=== PATIENT | female | born 1950 | race Caucasian/White ===

== ENCOUNTER 2017-08-11 11:35 | Emergency (ER) | payer MEDICARE, SELFPAY ==
[2017-08-11] VITALS (9 sets, daily range): BP systolic 117–175; BP diastolic 78–112; PULSE 75–99; RESP 12–20; TEMP 36.6; O2SAT 97–100; BMI 17.2
[2017-08-11] MEDS: ONDANSETRON 4 MG/2 ML INJ IV (12:02)
--- NOTE | 2017-08-11 12:09 | PC.NURSE ---
unable to get full hx or allergies on pt due to pt altered LOC. Medics unable to state pts medical HX. Family is on their way. Charting completed the best to my knowledge.
--- NOTE | 2017-08-11 12:21 | PC.NURSE ---
pt sleeping, easily awaken with verbal stimuli, pt repetedly stating i though i was home, pt admits of having diarrhea for 6 days. admits drinking alot. warm blanker provided.
--- NOTE | 2017-08-11 12:27 | DI.RAD.S_ITS ---
PROCEDURE: XR CHEST 1V INDICATIONS: 67 year-old female with altered mental status. TECHNIQUE: One view of the chest was acquired. COMPARISON: [facility], CR, CHEST 2 VIEW, 05/18/2017, 10:57. [facility], CR, XR CHEST 2VW, 11/04/2016, 13:33. [facility], CR, CHEST 2 VIEW, 03/23/2016, 15:18. FINDINGS: Surgical changes and devices: Patient is status post cholecystectomy and bilateral axillary lymph node dissections. Lungs and pleura: No pleural effusions or pneumothorax. Lungs are clear. Mediastinum: Mediastinal contours appear normal. Heart size is normal. Bones and chest wall: No suspicious bony lesions. Overlying soft tissues appear unremarkable. IMPRESSION: No acute cardiopulmonary disease. Dictated by: Baljinder Garcia M.D. on 08/11/2017 at 12:55 Approved by: Baljinder Garcia M.D. on 08/11/2017 at 12:55
--- NOTE | 2017-08-11 12:27 | DI.CT.S_ITS ---
PROCEDURE: CT HEAD/BRAIN WO CON INDICATIONS: 67 year-old female with altered mental status. TECHNIQUE: Noncontrast 4.5 mm thick angled axial sections acquired from the foramen magnum to the vertex, with coronal and sagittal reformats. For radiation dose reduction, the following was used: automated exposure control, adjustment of mA and/or kV according to patient size. COMPARISON: [facility], CT, CT BRAIN WO CON, 12/24/2016, 14:28. FINDINGS: Image quality: Excellent. CSF spaces: Basal cisterns are patent. No extra-axial fluid collections. Ventricles are normal in size and shape. Brain: No midline shift. No intracranial masses or hemorrhage. Asymmetric senescent left basal ganglia calcification is unchanged. Colby-white matter interface is normal. There is mild intracranial internal carotid artery atherosclerosis. Skull and face: Calvarium and visualized facial bones are intact, without suspicious lesions. Sinuses: Visualized sinuses and mastoids are clear. IMPRESSION: No acute intracranial abnormalities. Dictated by: Baljinder Garcia M.D. on 08/11/2017 at 12:52 Approved by: Baljinder Garcia M.D. on 08/11/2017 at 12:54
[2017-08-11 12:50] LABS: Add Manual Diff / Slide Review NO; Basophils Percent Auto 1.1 % (0-2); Eosinophils Percent Auto 0.6 % (2-4); Hematocrit 42.7 % (36-46); Hemoglobin 14.6 g/dL (12.0-16.0); Lymphocytes Percent Auto 59.7 % (25-40); Mean Corpuscular HGB Conc 34.1 % (30-36); Mean Corpuscular Hemoglobin 30.5 PG (26-34); Mean Corpuscular Volume 89.4 fL (80-100); Monocytes Percent Auto 8.3 % (3-14); Neutrophils Absolute Auto 1100 /uL (3000-5900); Neutrophils Percent Auto 30.3 % (50-75); Platelet Count 229 X10^3/uL (150-400); Red Blood Cell Count 4.78 X10^6/uL (4.0-5.2); Red Cell Distribution Width 13.3 % (11.6-14.8); White Blood Cell Count 3.6 X10^3/uL (4.5-11.0)
[2017-08-11 12:54] LABS: Alanine Aminotransferase 37 IU/L (9-52); Albumin 4.7 g/dL (3.5-5.0); Albumin Globulin Ratio 1.5 (1.0-2.8); Alkaline Phosphatase 82 U/L (38-126); Aspartate Aminotransferase 71 IU/L (14-36); BUN Creatinine Ratio 14.3 (6-22); Bilirubin Total 0.9 mg/dL (0.2-1.3); Calcium 8.3 mg/dL (8.4-10.2); Estimated Glomerular Filt Rate > 60.0 mL/min (>60); Globulin 3.1 g/dL (1.7-4.1); Glucose 123 mg/dL (80-110); HEMOLYSIS 44 (0-50); Lipase 371 U/L (23-300); Potassium 4.5 mmol/L (3.4-5.1); Sodium 142 mmol/L (137-145); Total Protein 7.8 g/dL (6.3-8.2)
[2017-08-11 13:06] LABS: Ammonia (NH3) < 9.0 umol/L (9-30); Lactate (Lactic Acid) 1.2 mmol/L (0.7-2.1)
[2017-08-11 13:08] LABS: Procalcitonin < 0.05 ng/mL (<0.5)
[2017-08-11 13:20] LABS: Thyroid Stimulating Hormone 1.02 uIU/mL (0.47-4.68)
[2017-08-11 13:58] LABS: Ethanol (ETOH) 434 mg/dL
[2017-08-11] MEDS: HALOPERIDOL 5 MG/ML VIAL IV (14:12)
[2017-08-11 16:51] LABS: Appearance Urine UA CLEAR; Bilirubin Urine UA NEGATIVE (NEGATIVE); Color Urine UA YELLOW; Glucose Urine UA NEGATIVE (NEGATIVE); Ketones Urine UA NEGATIVE (NEGATIVE); Leukocyte Esterase Urine UA NEGATIVE (NEGATIVE); Nitrite Urine UA NEGATIVE (NEGATIVE); Occult Blood Urine UA TRACE-INTACT (NEGATIVE); Protein Urine UA NEGATIVE (NEGATIVE); Specific Gravity Urine UA <=1.005 (1.000-1.035); Urobilinogen Urine UA 0.2 E.U./dL (0.2); pH Urine UA 6.5 (4.5-8.0)
[2017-08-11 16:58] LABS: Urine Amphetamines Negative (Negative); Urine Barbiturates Negative (Negative); Urine Benzodiazepines Positive (Negative); Urine Cocaine Negative (Negative); Urine MDMA Negative (Negative); Urine Methadone Negative (Negative); Urine Methamphetamines Negative (Negative); Urine Morphine/Opi cutoff 2000 Negative (Negative); Urine Oxycodone Negative (Negative); Urine Phencyclidine Negative (Negative); Urine Tetrahydrocannabinol Negative (Negative); Urine Tricyclic Antidepressant Negative (Negative)
[2017-08-11 16:59] LABS: RBC Urine 0-1/HPF (0-5/HPF); Squamous Epithelial Cell Urine 0-1 /HPF; WBC Urine 0-1/HPF (0-5/HPF)
[2017-08-11 17:00] LABS: Culture Indicated Urine Cult Not Indicated
--- NOTE | 2017-08-11 17:55 | PC.NURSE ---
left message to rafaela hendrix
--- NOTE | 2017-08-11 18:02 | ED_ITS ---
HPI - Altered Mental Status General Chief Complaint: Altered Mental Status Stated Complaint: lethargic/weakness History of Present Illness HPI narrative: HPI 67-year-old female with history of EtOH abuse, DCS, right breast CA, anxiety, and essential hypertension presents for evaluation of confusion without further history of being available. M/S/F/SocHx notable for: please see HPI; remainder reviewed in the chart. ROS: unable to obtain secondary to altered mentation. Exam Gen:, pleasant nontoxic-appearing, resting comfortably, arouses to voice, confused, slurring speech. HEENT: NC, AT, PEERL, EOMI. Resp: Clear to auscultation bilaterally, normal work of breathing, no accessory muscle usage. Card: Regular rate and rhythm with no murmurs, rubs, or gallops, extremities warm and well perfused. GI: Non-tender to palpation throughout all quadrants, no focal tenderness at McBurney's point, negative Cerda's sign, non-distended, no rebound or guarding. : No suprapubic tenderness to palpation. MSK: No visible deformities, strength and tone without visually appreciable deficit. Skin: Normal color with no visible lesions. Neuro: alert and oriented to self but not location, time, date. Moving all extremities without appreciable deficit. Psych: label mood and affect, slurring speech. Labs / Imaging: WBC 3.6, HB 14.6, sodium 142, potassium 4.5, lactic acid 1.2, ammonia less than 9.0, lipase 371, TSH 1.02, pro-calcitonin less than 0.05, EtOH 434 CT head: no acute intracranial abnormality. CXR: no acute cardiopulmonary abnormality. EKG: SR 79 bpm, no ST segment elevations or depressions, no LBBB, QRS 83 ms, QTc 403 ms. MDM Previous chart, nursing note, labs, imaging, and vitals reviewed. A: 67-year-old female with history of EtOH abuse, DCS, right breast CA, anxiety , and essential hypertension presents for evaluation of confusion without further history of being available. DDx & Evaluation: overall clinical toxidrome appears to be congruent with the patient's elevated blood alcohol level. No appreciable trauma on exam or imaging. EKG without evidence of ischemia or conduction abnormalities (ordered to evaluate for possible QT or QRS prolongation secondary to drug ingestion). No hyperammonemia or asterixis. No evidence of infection/sepsis. No evidence of meningitis. TSH WNL. Patient with ongoing confusion, given haloperidol for treatment of encephalopathy. Patient with clearing of intoxication, repeat evaluation with patient alert and oriented, patient care transferred to the overnight provider pending discharge to the patient's son. Patient ambulatory with a steady gait. Impression: confusion, EtOH intoxication (please reference below for remainder of encounter information) Related Data Home Medications Medication Instructions Recorded Confirmed cyclobenzaprine 0 tab PO DIRECTED 08/11/17 08/11/17 hydromorphone [Dilaudid] 2 mg PO Q4HP PRN 08/11/17 08/11/17 lorazepam [Ativan] 2 tab PO Q6H 08/11/17 08/11/17 ondansetron [Zofran ODT] 4 mg SUBLINGUAL Q4HP PRN 08/11/17 08/11/17 tramadol 1 tab PO TID PRN 08/11/17 08/11/17 Previous Rx's Medication Instructions Recorded docusate sodium [Colace] 100 mg PO BID #14 cap 06/04/17 sennosides [Senokot] 8.6 mg PO QDAY #10 tab 06/04/17 lisinopril 20 mg PO QDAY #90 tab 06/07/17 Allergies Allergy/AdvReac Type Severity Reaction Status Date / Time morphine [MORPHINE] Allergy Severe MY BRAIN Verified 08/11/17 14:09 RECEPTORS TO ACKNOWLEDGE IT permethrin [PERMETHRIN] Allergy Severe vomiting, Verified 08/11/17 14:09 diarrhea, all over rash prednisone [PREDNISONE] Allergy Intermediate SICK TO Verified 08/11/17 14:09 STOMACH HARD TIME THINKING acetaminophen [ACETAMINOPHEN] Allergy Mild vomiting Verified 08/11/17 14:09 aspirin [ASPIRIN] Allergy Mild rectal Verified 08/11/17 14:09 bleeding clindamycin [CLINDAMYCIN] Allergy Mild Verified 08/11/17 14:09 codeine [CODEINE] Allergy Mild Verified 08/11/17 14:09 ibuprofen [IBUPROFEN] Allergy Mild vomiting Verified 08/11/17 14:09 MDM - Altered Mental Status Lab Data Result diagrams: 08/11/17 11:55 08/11/17 11:55 Lab Results 08/11/17 08/11/17 08/11/17 Range/Units 11:55 11:55 11:55 WBC 3.6 L (4.5-11.0) X10^3/uL RBC 4.78 (4.0-5.2) X10^6/uL Hgb 14.6 (12.0-16.0) g/dL Hct 42.7 (36-46) % MCV 89.4 (80-100) fL MCH 30.5 (26-34) PG MCHC 34.1 (30-36) % RDW 13.3 (11.6-14.8) % Plt Count 229 (150-400) X10^3/uL Neut % (Auto) 30.3 L (50-75) % Lymph % (Auto) 59.7 H (25-40) % [place] % (Auto) 8.3 (3-14) % Eos % (Auto) 0.6 L (2-4) % Baso % (Auto) 1.1 (0-2) % Neut # (Auto) 1100 L (7914-1548) /uL Sodium 142 (137-145) mmol/L Potassium 4.5 (3.4-5.1) mmol/L Chloride 102.0 (98-107) mmol/L Carbon Dioxide 23.0 (22-32) mmol/L BUN 10.0 (7-17) mg/dL Creatinine 0.70 (0.52-1.04) mg/dL Estimated GFR > 60.0 (>60) mL/min BUN/Creatinine Ratio 14.3 (6-22) Glucose 123 H (80-110) mg/dL Lactate (0.7-2.1) mmol/L Calcium 8.3 L (8.4-10.2) mg/dL Total Bilirubin 0.9 (0.2-1.3) mg/dL AST 71 H (14-36) IU/L ALT 37 (9-52) IU/L Alkaline Phosphatase 82 (38-126) U/L Ammonia (9-30) umol/L Total Protein 7.8 (6.3-8.2) g/dL Albumin 4.7 (3.5-5.0) g/dL Globulin 3.1 (1.7-4.1) g/dL Albumin/Globulin Ratio 1.5 (1.0-2.8) Lipase 371 H (23-300) U/L Procalcitonin < 0.05 (<0.5) ng/mL TSH (0.47-4.68) uIU/mL Urine Color Urine Appearance Urine pH (4.5-8.0) Ur Specific [place] (1.000-1.035) Urine Protein (NEGATIVE) Urine Glucose (UA) (NEGATIVE) g/dL Urine Ketones (NEGATIVE) Urine Occult Blood (NEGATIVE) Urine Nitrate (NEGATIVE) Urine Bilirubin (NEGATIVE) Urine Urobilinogen (0.2) E.U./dL Ur Leukocyte Esterase (NEGATIVE) Urine RBC (0-5/HPF) Urine WBC (0-5/HPF) Ur Squamous Epith Cells Ur Culture Indicated? Micro UA Comment Urine Opiates Screen (Negative) Ur Oxycodone Screen (Negative) Urine Methadone Screen (Negative) Ur Barbiturates Screen (Negative) U Tricyclic Antidepress (Negative) Ur Phencyclidine Scrn (Negative) Ur Amphetamines Screen (Negative) U Methamphetamines Scrn (Negative) Ur MDMA Scrn (Ecstasy) (Negative) U Benzodiazepines Scrn (Negative) Urine Cocaine Screen (Negative) U Marijuana (THC) Screen (Negative) Ethyl Alcohol 434 H* mg/dL 08/11/17 08/11/17 08/11/17 Range/Units 11:55 12:48 12:48 WBC (4.5-11.0) X10^3/uL RBC (4.0-5.2) X10^6/uL Hgb (12.0-16.0) g/dL Hct (36-46) % MCV (80-100) fL MCH (26-34) PG MCHC (30-36) % RDW (11.6-14.8) % Plt Count (150-400) X10^3/uL Neut % (Auto) (50-75) % Lymph % (Auto) (25-40) % [place] % (Auto) (3-14) % Eos % (Auto) (2-4) % Baso % (Auto) (0-2) % Neut # (Auto) (5082-9318) /uL Sodium (137-145) mmol/L Potassium (3.4-5.1) mmol/L Chloride (98-107) mmol/L Carbon Dioxide (22-32) mmol/L BUN (7-17) mg/dL Creatinine (0.52-1.04) mg/dL Estimated GFR (>60) mL/min BUN/Creatinine Ratio (6-22) Glucose (80-110) mg/dL Lactate 1.2 (0.7-2.1) mmol/L Calcium (8.4-10.2) mg/dL Total Bilirubin (0.2-1.3) mg/dL AST (14-36) IU/L ALT (9-52) IU/L Alkaline Phosphatase (38-126) U/L Ammonia < 9.0 L (9-30) umol/L Total Protein (6.3-8.2) g/dL Albumin (3.5-5.0) g/dL Globulin (1.7-4.1) g/dL Albumin/Globulin Ratio (1.0-2.8) Lipase (23-300) U/L Procalcitonin (<0.5) ng/mL TSH 1.02 (0.47-4.68) uIU/mL Urine Color Urine Appearance Urine pH (4.5-8.0) Ur Specific [place] (1.000-1.035) Urine Protein (NEGATIVE) Urine Glucose (UA) (NEGATIVE) g/dL Urine Ketones (NEGATIVE) Urine Occult Blood (NEGATIVE) Urine Nitrate (NEGATIVE) Urine Bilirubin (NEGATIVE) Urine Urobilinogen (0.2) E.U./dL Ur Leukocyte Esterase (NEGATIVE) Urine RBC (0-5/HPF) Urine WBC (0-5/HPF) Ur Squamous Epith Cells Ur Culture Indicated? Micro UA Comment Urine Opiates Screen (Negative) Ur Oxycodone Screen (Negative) Urine Methadone Screen (Negative) Ur Barbiturates Screen (Negative) U Tricyclic Antidepress (Negative) Ur Phencyclidine Scrn (Negative) Ur Amphetamines Screen (Negative) U Methamphetamines Scrn (Negative) Ur MDMA Scrn (Ecstasy) (Negative) U Benzodiazepines Scrn (Negative) Urine Cocaine Screen (Negative) U Marijuana (THC) Screen (Negative) Ethyl Alcohol mg/dL 08/11/17 08/11/17 Range/Units 16:33 16:33 WBC (4.5-11.0) X10^3/uL RBC (4.0-5.2) X10^6/uL Hgb (12.0-16.0) g/dL Hct (36-46) % MCV (80-100) fL MCH (26-34) PG MCHC (30-36) % RDW (11.6-14.8) % Plt Count (150-400) X10^3/uL Neut % (Auto) (50-75) % Lymph % (Auto) (25-40) % [place] % (Auto) (3-14) % Eos % (Auto) (2-4) % Baso % (Auto) (0-2) % Neut # (Auto) (0370-2957) /uL Sodium (137-145) mmol/L Potassium (3.4-5.1) mmol/L Chloride (98-107) mmol/L Carbon Dioxide (22-32) mmol/L BUN (7-17) mg/dL Creatinine (0.52-1.04) mg/dL Estimated GFR (>60) mL/min BUN/Creatinine Ratio (6-22) Glucose (80-110) mg/dL Lactate (0.7-2.1) mmol/L Calcium (8.4-10.2) mg/dL Total Bilirubin (0.2-1.3) mg/dL AST (14-36) IU/L ALT (9-52) IU/L Alkaline Phosphatase (38-126) U/L Ammonia (9-30) umol/L Total Protein (6.3-8.2) g/dL Albumin (3.5-5.0) g/dL Globulin (1.7-4.1) g/dL Albumin/Globulin Ratio (1.0-2.8) Lipase (23-300) U/L Procalcitonin (<0.5) ng/mL TSH (0.47-4.68) uIU/mL Urine Color Yellow Urine Appearance Clear Urine pH 6.5 (4.5-8.0) Ur Specific [place] <=1.005 (1.000-1.035) Urine Protein Negative (NEGATIVE) Urine Glucose (UA) Negative (NEGATIVE) g/dL Urine Ketones Negative (NEGATIVE) Urine Occult Blood Trace-intact H (NEGATIVE) Urine Nitrate Negative (NEGATIVE) Urine Bilirubin Negative (NEGATIVE) Urine Urobilinogen 0.2 (0.2) E.U./dL Ur Leukocyte Esterase Negative (NEGATIVE) Urine RBC 0-1/hpf (0-5/HPF) Urine WBC 0-1/hpf (0-5/HPF) Ur Squamous Epith Cells 0-1 /hpf Ur Culture Indicated? Cult not indicated Micro UA Comment Not Reportable Urine Opiates Screen Negative (Negative) Ur Oxycodone Screen Negative (Negative) Urine Methadone Screen Negative (Negative) Ur Barbiturates Screen Negative (Negative) U Tricyclic Antidepress Negative (Negative) Ur Phencyclidine Scrn Negative (Negative) Ur Amphetamines Screen Negative (Negative) U Methamphetamines Scrn Negative (Negative) Ur MDMA Scrn (Ecstasy) Negative (Negative) U Benzodiazepines Scrn Positive H (Negative) Urine Cocaine Screen Negative (Negative) U Marijuana (THC) Screen Negative (Negative) Ethyl Alcohol mg/dL Course Orders Ordered: ED Orders 08/11/17 11:55 Complete Blood Count AUTO DIFF Stat Comprehensive Metabolic Panel Stat Ethanol (ETOH) Stat Lipase Stat Procalcitonin Stat Thyroid Stimulating Hormone Stat 08/11/17 12:27 CT head/brain wo con Stat XR chest 1V Stat 08/11/17 12:48 Ammonia (NH3) Stat Lactate (Lactic Acid) Stat 08/11/17 12:56 EKG-12 Lead Stat 08/11/17 16:33 Rapid Drug Screen, Urine Stat Urinalysis and Microscopic Stat Discontinued Medications Haloperidol (Haldol) 5 mg IM NOW ONE Stop: 08/11/17 14:03 Last Admin: 08/11/17 15:42 Dose: Haloperidol (Haldol) 5 mg IV NOW ONE Stop: 08/11/17 14:09 Last Admin: 08/11/17 14:12 Dose: 5 mg Ondansetron HCl (Zofran) 4 mg IV NOW ONE Stop: 08/11/17 12:02 Last Admin: 08/11/17 12:02 Dose: 4 mg Last Vital Signs Temp 98 F 08/11/17 11:59 Pulse 86 08/11/17 17:29 Resp 16 08/11/17 17:29 BP 157/100 H 08/11/17 17:29 Pulse Ox 100 08/11/17 17:29 Discharge Plan Departure Prescriptions: No Action docusate sodium [Colace] 100 MG capsule 100 mg PO BID Qty: 14 RF: 1 sennosides [Senokot] 8.6 MG tablet 8.6 mg PO QDAY Qty: 10 RF: 1 lisinopril 20 MG tablet 20 mg PO QDAY Qty: 90 RF: 3 tramadol 50 MG tablet 1 tab PO TID PRN (Reason: Pain, Severe) RF: 0 lorazepam [Ativan] 1 mg tablet 2 tab PO Q6H RF: 0 hydromorphone [Dilaudid] 2 MG tablet 2 mg PO Q4HP PRN (Reason: Pain, Severe) RF: 0 ondansetron [Zofran ODT] 4 MG tablet,disintegrating 4 mg Sublingual Q4HP PRN (Reason: Nausea) RF: 0 cyclobenzaprine 10 MG tablet PO DIRECTED RF: 0
--- NOTE | 2017-08-11 18:59 | PC.NURSE ---
talked to pts son about discharging her home. Pts son concerned because she is not willing to get help, and continues to drink heavily. [facility] since pt has been seen at the ER multiple times for ETOH abuse. Pt brought here covered in feces from home, son states she is unable to care for herself anymore since her ETOH abuse continues to get worse. Joy RN notified. 8 total ER visits between [facility] and [facility] reported on ANA M report.
--- NOTE | 2017-08-11 22:26 | PC.NURSE ---
[facility] evaluated pt and spoke with son Caesar who is willing to care for mom and take her to [facility] followup tomorrow.
== END 2017-08-11 23:10 | disposition home or self-care (01) ==
PROVIDERS: Emergency Provider Emergency Medicine; Family Provider Family Medicine; PCP Family Medicine
DX: R41.0 Disorientation, unspecified (principal); F10.929 Alcohol use, unspecified with intoxication, unspecified
CPT/HCPCS: 36415; 36591; 70450; 71045; 80053; 80305; 80320; 81001; 82140; 83605; 83690; 84145; 84443; 85025; 93005; 96372; 96374; 99285; J1630; J2405

== ENCOUNTER → 2017-08-25 07:13 | Outpatient (CLI) | payer MEDICARE, SELFPAY ==
[2017-08-25 08:54] LABS: Cholesterol 238 mg/dL (140-199); HDL Cholesterol 105 mg/dL (40-60); LDL Cholesterol Calculated 119 mg/dL (<100); Triglycerides 72 mg/dL (35-150)
== END ==
PROVIDERS: PCP Family Medicine; Visit Provider Family Medicine
DX: E78.2 Mixed hyperlipidemia (principal)
CPT/HCPCS: 36415; 80061

== ENCOUNTER 2017-09-13 08:14 | Emergency (ER) | payer MEDICARE, SELFPAY ==
[2017-09-13 08:31] VITALS: BP 172/150; PULSE 87; RESP 18; TEMP 36.6; O2SAT 100
--- NOTE | 2017-09-13 08:56 | DI.RAD.S_ITS ---
PROCEDURE: XR RIBS RT MIN 3V W CXR 1V INDICATIONS: trauma, right posterior rib pain, sob TECHNIQUE: 2 views of the right ribs were acquired, along with a single view chest. COMPARISON: [facility], , XR CHEST 1V, 08/11/2017, 12:13. FINDINGS: Surgical changes and devices: Right axilla surgical clips are present. Multiple radiodensities projects over the lower chest Bones and chest wall: No fractures or dislocations. No suspicious bony lesions. Overlying soft tissues appear unremarkable. Lungs and pleura: No pleural effusions or pneumothorax. Lungs appear clear. Mediastinum: Mediastinal contours appear normal. Heart size is normal. IMPRESSION: 1. No evidence of rib fracture. Bone scan could be performed for further assessment, if clinically indicated. 2. Metallic radiodensities projecting over the lower chest bilaterally, which are of uncertain significance. Dictated by: Jayna Hunter M.D. on 09/13/2017 at 9:22 Approved by: Jayna Hunter M.D. on 09/13/2017 at 9:24
[2017-09-13 09:09] LABS: Add Manual Diff / Slide Review NO; Basophils Percent Auto 0.5 % (0-2); Eosinophils Percent Auto 0.3 % (2-4); Hematocrit 41.2 % (36-46); Hemoglobin 13.7 g/dL (12.0-16.0); Mean Corpuscular HGB Conc 33.2 % (30-36); Mean Corpuscular Hemoglobin 29.5 PG (26-34); Mean Corpuscular Volume 88.9 fL (80-100); Monocytes Percent Auto 7.6 % (3-14); Neutrophils Absolute Auto 4900 /uL (3000-5900); Neutrophils Percent Auto 76.6 % (50-75); Platelet Count 277 X10^3/uL (150-400); Red Blood Cell Count 4.64 X10^6/uL (4.0-5.2); Red Cell Distribution Width 13.1 % (11.6-14.8); White Blood Cell Count 6.4 X10^3/uL (4.5-11.0)
--- NOTE | 2017-09-13 09:21 | ED_ITS ---
HPI - SOB/Dyspnea General Chief Complaint: Shortness of Breath/Dyspnea Stated Complaint: HIT ON RT SIDE BY COW Time Seen by Provider: 09/13/17 08:23 Source: patient Mode of arrival: ambulatory Limitations: no limitations History of Present Illness 67-year-old female with history of chronic back pain presents with shortness of breath and right upper back pain/rib pain that began last night at 5:00 p.m. when she was charged by [place] during feeding time. She states she was bending forward and the animal came to trying get the food and pushed her over. She took her home tramadol up to 3 doses within several hours and did not find any relief from her symptoms. She was hoping the symptoms would resolve by morning but they have persisted. They are associated with shortness of breath. She has a history of alcohol abuse but is currently attending AA and notes she has been sober for some time now. Related Data Home Medications Medication Instructions Recorded Confirmed lorazepam [Ativan] 1 tab PO TID 08/11/17 09/13/17 Previous Rx's Medication Instructions Recorded lisinopril 20 mg PO QDAY #90 tab 06/07/17 tramadol 50 mg tablet 50 mg PO TID PRN #90 tab 09/01/17 hydrocodone-acetaminophen [Goldfield] 1 tab PO Q4H PRN #20 tab 09/13/17 Allergies Allergy/AdvReac Type Severity Reaction Status Date / Time morphine [MORPHINE] Allergy Severe MY BRAIN Verified 08/24/17 09:45 RECEPTORS TO ACKNOWLEDGE IT permethrin [PERMETHRIN] Allergy Severe vomiting, Verified 08/24/17 09:45 diarrhea, all over rash prednisone [PREDNISONE] Allergy Intermediate SICK TO Verified 08/24/17 09:45 STOMACH HARD TIME THINKING acetaminophen [ACETAMINOPHEN] Allergy Mild vomiting Verified 08/24/17 09:45 aspirin [ASPIRIN] Allergy Mild rectal Verified 08/24/17 09:45 bleeding clindamycin [CLINDAMYCIN] Allergy Mild Verified 08/24/17 09:45 codeine [CODEINE] Allergy Mild Verified 08/24/17 09:45 ibuprofen [IBUPROFEN] Allergy Mild vomiting Verified 08/24/17 09:45 Review of Systems Review of Systems All systems reviewed & are unremarkable except as noted in HPI and below Constitutional Denies chills, Denies fever(s), Denies lethargy and Denies weakness Eyes Denies change in vision, Denies eye discharge, Denies irritation and Denies loss of vision ENT Ears, Nose, Mouth, and Throat: Denies change in voice, Denies neck pain and Denies sore throat Cardiovascular Denies chest pain, Denies irregular heart rhythm, Denies lightheadedness, Denies palpitations, Denies dyspnea, Denies dyspnea on exertion and Denies orthopnea Respiratory Denies cough, Denies dyspnea, Denies dyspnea on exertion and Denies wheezing Gastrointestinal Gastrointestinal: Denies abdominal pain, Denies change in bowel habits, Denies diarrhea, Denies nausea and Denies vomiting Genitourinary Denies hematuria, Denies flank pain, Denies urinary incontinence and Denies urinary urgency Musculoskeletal Reports back pain and Denies neck pain Comments: Right upper chest wall pain posteriorly Integumentary/Breasts Denies pruritus, Denies erythema, Denies rash and Denies wounds Neurologic Denies confusion, Denies loss of vision and Denies weakness Psychiatric Denies anxiety, Denies confusion, Denies depression, Denies homicidal ideation and Denies suicidal ideation Endocrine Denies palpitations Hematologic/Lymphatic Denies easy bruising Allergic/Immunologic Denies wheezing PFSH Surgical History History of lumpectomy Status post cholecystectomy Social History Smoking Status: Never smoker Exam Initial Vital Signs Initial Vital Signs: Vital Signs Temperature 97.8 F 09/13/17 08:31 Pulse Rate 87 09/13/17 08:31 Respiratory Rate 18 09/13/17 08:31 Blood Pressure 172/150 H 09/13/17 08:31 Pulse Oximetry 100 09/13/17 08:31 Const General: cooperative and well developed Nutritional Appearance: well nourished Orientation: alert, awake, oriented x3 and not confused [facility] Head: normocephalic and atraumatic Ears: external ears normal and TM's normal bilaterally Nose: external nose normal and No nasal discharge Face and sinus: sinuses nontender, face symmetric, no sinus tenderness and No dry mucous membranes Mouth: oral mucosae normal and moist mucous membranes Teeth and gingiva: dentition normal Throat: tonsils normal and uvula midline Eyes General: appearance normal, both eyes and all related structures Eyelids: eyelids normal Conjunctivae: conjunctivae normal Sclera: sclerae normal Pupils: PERRL EOM: EOM intact bilaterally Neck Neck: normal visual inspection, trachea midline, No lymphadenopathy, No midline deformity and No JVD Lymphatic: No lymphedema Chest Other: Tenderness over the right thoracic paraspinal rib area. There is no crepitus, bruising, or step-offs. Resp Effort & Inspection: normal respiratory effort, able to speak in complete sentences, no respiratory distress and no use of accessory muscles Auscultation: clear to auscultation bilaterally, no rales, no rhonchi and no wheezes Cardio Rate: regular rate Rhythm: regular rhythm Heart Sounds: no click, no gallops, no murmurs and no rubs Pulses: normal peripheral pulses GI Inspection: non-distended Palpation: soft, no hepatosplenomegaly, No guarding, No pulsatile mass and No tender Auscultation: normal bowel sounds Back/Spine/Pelvis Back: No CVA tenderness Cervical Spine: cervical ROM normal and No pain with cervical ROM Thoracic/Lumbar Spine: thoracic and lumbar spine normal to inspection Skin General: no rashes or lesions noted, No jaundice and No petechiae Neuro General: alert, oriented x3, gait normal and no focal motor deficits Speech: speech normal Extrem General: full ROM, no clubbing, cyanosis or edema, no pedal edema and no calf tenderness Psych Appearance: well kempt Mental Status: mental status grossly normal Attitude: cooperative Thought Content: normal and suicidality Judgment: judgment good Course Orders Ordered: Discontinued Medications Hydromorphone HCl (Dilaudid) 0.5 mg IV NOW ONE Stop: 09/13/17 08:57 Last Admin: 09/13/17 09:26 Dose: 0.5 mg Hydromorphone HCl (Dilaudid) 0.5 mg IV NOW ONE Stop: 09/13/17 10:16 Last Admin: 09/13/17 10:27 Dose: 0.5 mg Ondansetron HCl (Zofran) 4 mg IV NOW ONE Stop: 09/13/17 08:57 Last Admin: 09/13/17 09:26 Dose: 4 mg Reevaluation(s) Reevaluation #1: Informed patient of negative x-rays. She is still having pain and requests more medication. Time: 10:16 Consultations Consultation #1: I discussed patient's care with her primary care provider, Dr. Rasmussen, as I was suspecting she may be on pain contract. He notes she is not on pain contract in feels that she can be discharged home with hydrocodone 5/ 325 #20. Vital Signs - 8 hr 09/13/17 11:51 Pulse Rate 74 Respiratory Rate 15 Blood Pressure [Right Arm] 135/88 H Pulse Oximetry 97 MDM - SOB/Dyspnea Medical Records Attestation: I reviewed the patient's medical records. Lab Data Attestation: I reviewed the patient's lab results. Result diagrams: 09/13/17 09:00 09/13/17 09:00 Lab Results 09/13/17 09/13/17 09/13/17 Range/Units 09:00 09:00 09:35 WBC 6.4 (4.5-11.0) X10^3/uL RBC 4.64 (4.0-5.2) X10^6/uL Hgb 13.7 (12.0-16.0) g/dL Hct 41.2 (36-46) % MCV 88.9 (80-100) fL MCH 29.5 (26-34) PG MCHC 33.2 (30-36) % RDW 13.1 (11.6-14.8) % Plt Count 277 (150-400) X10^3/uL Neut % (Auto) 76.6 H (50-75) % Lymph % (Auto) 15.0 L (25-40) % Brantley % (Auto) 7.6 (3-14) % Eos % (Auto) 0.3 L (2-4) % Baso % (Auto) 0.5 (0-2) % Neut # (Auto) 4900 (4460-7665) /uL Sodium 133 L (137-145) mmol/L Potassium 3.5 (3.4-5.1) mmol/L Chloride 98 (98-107) mmol/L Carbon Dioxide 23 (22-32) mmol/L BUN 10 (7-17) mg/dL Creatinine 0.70 (0.52-1.04) mg/dL Estimated GFR > 60.0 (>60) mL/min BUN/Creatinine Ratio 14.3 (6-22) Glucose 96 (80-110) mg/dL Lactate 0.9 (0.7-2.1) mmol/L Calcium 9.3 (8.4-10.2) mg/dL Imaging Data right ribs: Radiologist's impression: PROCEDURE: XR RIBS RT MIN 3V W CXR 1V INDICATIONS: trauma, right posterior rib pain, sob TECHNIQUE: 2 views of the right ribs were acquired, along with a single view chest. COMPARISON: [facility], CR, XR CHEST 1V, 08/11/2017, 12:13. FINDINGS: Surgical changes and devices: Right axilla surgical clips are present. Multiple radiodensities projects over the lower chest Bones and chest wall: No fractures or dislocations. No suspicious bony lesions. Overlying soft tissues appear unremarkable. Lungs and pleura: No pleural effusions or pneumothorax. Lungs appear clear. Mediastinum: Mediastinal contours appear normal. Heart size is normal. IMPRESSION: 1. No evidence of rib fracture. Bone scan could be performed for further assessment, if clinically indicated. 2. Metallic radiodensities projecting over the lower chest bilaterally, which are of uncertain significance. Dictated by: Jayna Hunter M.D. on 09/13/2017 at 9:22 Approved by: Jayna Hunter M.D. on 09/13/2017 at 9:24 MDM Narrative Medical decision making narrative: I consider rib fracture, spinal fracture, pneumothorax, pulmonary contusion, and rib contusion as possible diagnoses/ causes for her pain given her trauma. There is no evidence of rib fracture seen on x-ray nor is there evidence of pneumothorax, pulmonary contusion. She is not tender in the area of the spine and not likely to have spinal fracture. Her pain must be most consistent with rib contusion, however I do not see evidence of bruising or trauma to the ribs which is interesting, however she does appear significantly uncomfortable initially. Symptoms improved with Dilaudid in the ER and she was discharged home with hydrocodone to help with her pain and close follow-up with her primary care provider who I contacted today. Return precautions given. Discharge Plan Departure Patient Disposition: Home, Self-Care Clinical Impression: Acute chest wall pain, Contusion of rib on right side Discharge Date/Time: 09/13/17 12:27 Interventions: ED Discharge Assessment Last Done: 09/13/17 12:27 Instructions: DI for Rib Contusion Activity Restrictions/Additional Instructions: Thank you for trusting as with your care today. No dangerous findings were noted in your evaluation. Please use hydrocodone as needed for pain. Follow up with your primary care provider within 1 week for re-evaluation. Return to the ER for new or worsening symptoms. Prescriptions: New hydrocodone-acetaminophen [Goldfield] 10-325 mg tablet 1 tab PO Q4H PRN (Reason: pain) Qty: 20 RF: 0 No Action lisinopril 20 MG tablet 20 mg PO QDAY Qty: 90 RF: 3 tramadol 50 mg tablet 50 mg PO TID PRN (Reason: Pain, Severe) Qty: 90 RF: 0 lorazepam [Ativan] 1 mg tablet 1 tab PO TID RF: 0
[2017-09-13 09:22] LABS: BUN Creatinine Ratio 14.3 (6-22); Blood Urea Nitrogen 10 mg/dL (7-17); Calcium 9.3 mg/dL (8.4-10.2); Carbon Dioxide 23 mmol/L (22-32); Chloride 98 mmol/L (98-107); Estimated Glomerular Filt Rate > 60.0 mL/min (>60); Glucose 96 mg/dL (80-110); HEMOLYSIS < 15 (0-50); Potassium 3.5 mmol/L (3.4-5.1); Sodium 133 mmol/L (137-145)
[2017-09-13] MEDS: HYDROMORPHONE 0.5 MG INJ IV ×2 (09:26→10:27)
[2017-09-13] MEDS: ONDANSETRON 4 MG/2 ML INJ IV (09:26)
[2017-09-13 09:53] LABS: Lactate (Lactic Acid) 0.9 mmol/L (0.7-2.1)
[2017-09-13 11:51] VITALS: BP 135/88; PULSE 74; RESP 15; O2SAT 97
== END 2017-09-13 12:27 | disposition home or self-care (01) ==
PROVIDERS: Emergency Provider Emergency Medicine; Family Provider Family Medicine; PCP Family Medicine
DX: S20.211A Contusion of right front wall of thorax, initial encounter (principal); W55.22XA Struck by cow, initial encounter
CPT/HCPCS: 36591; 71101; 80048; 81003; 83605; 85025; 96374; 96375; 96376; 99283; 99284; J1170; J2405

== ENCOUNTER 2017-09-16 10:13 | Emergency (ER) | payer MEDICARE, SELFPAY ==
[2017-09-16 10:16] VITALS: BP 133/89; PULSE 86; RESP 20; TEMP 36.7; O2SAT 99
--- NOTE | 2017-09-16 13:13 | ED.UPPEXIN ---
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 The impact threw her onto the ground several feet away. She had pain in her ribs, but no other injuries such as head contusion or LOC at the time. She states this was very painful so came in here to the ED, had x-rays and no fractures. She states that pain medication she got here in the ED, Dilaudid, was helpful and she was able to sleep that night. She tried [place] the next day and this did nothing for her, so she threw it out. She talked with her PCP regarding pain medication and follow-up, but apparently no appointments available. She also began having abdominal pain in the last day and was told to come here for a CT. She states the pain is focused on both sides of her upper abdomen, under the rib area, however she feels like the rib injuries are actually improved. She denies dyspnea or wheeze. She denies any hematuria or vomiting blood or other new c.o. Pain is worse with movement and stretching the area, better sitting with back flexed. Related Data Home Medications Medication Instructions Recorded Confirmed lorazepam [Ativan] 1 tab PO TID 08/11/17 09/16/17 hydrocodone-acetaminophen 1 tab PO Q4H PRN 09/16/17 09/16/17 Previous Rx's Medication Instructions Recorded lisinopril 20 mg PO QDAY #90 tab 06/07/17 tramadol 50 mg tablet 50 mg PO TID PRN #90 tab 09/01/17 tramadol 50 mg PO Q4-6H PRN #10 tab 09/16/17 Allergies Allergy/AdvReac Type Severity Reaction Status Date / Time morphine [MORPHINE] Allergy Severe MY BRAIN Verified 08/24/17 09:45 RECEPTORS TO ACKNOWLEDGE IT permethrin [PERMETHRIN] Allergy Severe vomiting, Verified 08/24/17 09:45 diarrhea, all over rash prednisone [PREDNISONE] Allergy Intermediate SICK TO Verified 08/24/17 09:45 STOMACH HARD TIME THINKING acetaminophen [ACETAMINOPHEN] Allergy Mild vomiting Verified 08/24/17 09:45 aspirin [ASPIRIN] Allergy Mild rectal Verified 08/24/17 09:45 bleeding clindamycin [CLINDAMYCIN] Allergy Mild Verified 08/24/17 09:45 codeine [CODEINE] Allergy Mild Verified 08/24/17 09:45 ibuprofen [IBUPROFEN] Allergy Mild vomiting Verified 08/24/17 09:45 Review of Systems <Laura Vega PA-C - Last Filed: 09/16/17 20:28> Review of Systems All systems reviewed & are unremarkable except as noted in HPI and below Exam <SOWMYA Hinojosa Last Filed: 09/16/17 20:28> Narrative Exam Narrative: GENERAL APPEARANCE: Patient sitting comfortably, in no distress. HEENT: PERRL, EOMI, no scleral icterus NECK: Supple LUNGS: Clear to auscultation bilaterally. HEART: Rate and rhythm regular, normal S1 and S2, no S3 or S4. ABDOMEN: Soft, nondistended, bowel sounds present x 4 quadrants, no masses palpable, no hepatosplenomegaly. She is exquisitely tender mainly inferior to the ribs around both anterior costal margins without guarding or rebound. Very minimal tenderness over the inferior quadrants which is difficult to reproduce. No CVAT EXTREMITIES: No edema, no cyanosis DERMATOLOGIC: No jaundice or exanthem NEUROLOGIC: Alert and oriented with normal speech and coordination Initial Vital Signs Initial Vital Signs: Vital Signs Temperature 98.0 F 09/16/17 10:16 Pulse Rate 86 09/16/17 10:16 Respiratory Rate 20 09/16/17 10:16 Blood Pressure 133/89 H 09/16/17 10:16 Pulse Oximetry 99 09/16/17 10:16 <Joana Maldonado DO - Last Filed: 09/17/17 08:50> Initial Vital Signs Initial Vital Signs: Vital Signs Temperature 98.0 F 09/16/17 10:16 Pulse Rate 86 09/16/17 10:16 Respiratory Rate 20 09/16/17 10:16 Blood Pressure 133/89 H 09/16/17 10:16 Pulse Oximetry 99 09/16/17 10:16 Course <SOWMYA Hinojosa Last Filed: 09/16/17 20:28> Hospital Course: Patient reported feeling much improved during her stay. We reviewed CT findings. There was some question of bile duct dilatation though this could be due to her postop status. There does not appear to be any urgent need for surgical consultation or admission. I spoke with Dr. Rasmussen is office and they are arranging some other workup for her and will call to arrange follow-up. Also advised that I will prescribe a small amount of tramadol as [place] was not effective, but patient may need pain medications refilled through them and she was agreeable with plan Orders Ordered: Discontinued Medications Hydromorphone HCl (Dilaudid) 1 mg IV Q4H PRN PRN Reason: Pain, Severe Last Admin: 09/16/17 13:57 Dose: 1 mg Sodium Chloride (Normal Saline 0.9%) 1,000 mls @ 1,000 mls/hr IV BOLUS ONE Stop: 09/16/17 14:28 Last Infusion: 09/16/17 14:45 Dose: 0 mls/hr Admin: 09/16/17 13:57 Dose: 1,000 mls/hr Tramadol HCl (Ultram) 100 mg PO NOW ONE Stop: 09/16/17 13:30 Last Admin: 09/16/17 14:29 Dose: Not Given Vital Signs - 8 hr 09/16/17 15:23 Pulse Rate 74 Respiratory Rate 16 Blood Pressure [Left Arm] 158/102 H Pulse Oximetry 99 <Joana Maldonado, DO - Last Filed: 09/17/17 08:50> Orders Ordered: Discontinued Medications Hydromorphone HCl (Dilaudid) 1 mg IV Q4H PRN PRN Reason: Pain, Severe Last Admin: 09/16/17 13:57 Dose: 1 mg Sodium Chloride (Normal Saline 0.9%) 1,000 mls @ 1,000 mls/hr IV BOLUS ONE Stop: 09/16/17 14:28 Last Infusion: 09/16/17 14:45 Dose: 0 mls/hr Admin: 09/16/17 13:57 Dose: 1,000 mls/hr Tramadol HCl (Ultram) 100 mg PO NOW ONE Stop: 09/16/17 13:30 Last Admin: 09/16/17 14:29 Dose: Not Given Vital Signs - 8 hr 09/16/17 15:23 Pulse Rate 74 Respiratory Rate 16 Blood Pressure [Left Arm] 158/102 H Pulse Oximetry 99 MDM - Extremity Injury (Upper) <Laura Vega PA-C - Last Filed: 09/16/17 20:28> Lab Data Result diagrams: 09/16/17 13:50 09/16/17 13:50 Lab Results 09/16/17 09/16/17 09/16/17 Range/Units 13:40 13:50 13:50 WBC 6.3 (4.5-11.0) X10^3/uL RBC 4.41 (4.0-5.2) X10^6/uL Hgb 13.2 (12.0-16.0) g/dL Hct 39.3 (36-46) % MCV 89.1 (80-100) fL MCH 29.9 (26-34) PG MCHC 33.6 (30-36) % RDW 13.1 (11.6-14.8) % Plt Count 338 (150-400) X10^3/uL Neut % (Auto) 67.9 (50-75) % Lymph % (Auto) 21.5 L (25-40) % [place] % (Auto) 7.8 (3-14) % Eos % (Auto) 2.1 (2-4) % Baso % (Auto) 0.7 (0-2) % Neut # (Auto) 4300 (1656-9799) /uL Sodium 134 L (137-145) mmol/L Potassium 3.9 (3.4-5.1) mmol/L Chloride 95 L (98-107) mmol/L Carbon Dioxide 27 (22-32) mmol/L BUN 8 (7-17) mg/dL Creatinine 0.70 (0.52-1.04) mg/dL Estimated GFR > 60.0 (>60) mL/min BUN/Creatinine Ratio 11.4 (6-22) Glucose 102 (80-110) mg/dL Calcium 9.5 (8.4-10.2) mg/dL Urine Color Cancelled Urine Appearance Cancelled Urine pH Cancelled Ur Specific [place] Cancelled Urine Protein Cancelled Urine Glucose (UA) Cancelled Urine Ketones Cancelled Urine Occult Blood Cancelled Urine Nitrate Cancelled Urine Bilirubin Cancelled Urine Urobilinogen Cancelled Ur Leukocyte Esterase Cancelled Urine RBC 0-1/hpf (0-5/HPF) Urine WBC 5-10/hpf H (0-5/HPF) Ur Squamous Epith Cells 0-1 /hpf Urine Bacteria Moderate (10-30) H (None) Ur Culture Indicated? Specimen cultured Micro UA Comment Not Reportable Imaging Data CT scan - abdomen: Radiologist's impression: [address] [address] [address] Scan Report Signed Patient: Claudia Manzo MR#: [id number] : 1950 Acct:[id number] Age/Sex: 67 / F Date of Service: 09/16/17 Loc: ED Accession Number: [id number] Procedure: CT chest abd pel w con Ordering Provider: Laura Vega P.A-C PROCEDURE: CT CHEST ABD PEL W CON INDICATIONS: contusions, splenic, liver pain, KICK TO BACK AREA TUESDAY TECHNIQUE: After the administration of intravenous contrast, 5 mm thick sections acquired from the lung apices to the symphysis. 2.5 mm thick coronal and sagittal reformats were acquired. Additional 7 mm thick coronal maximum intensity projection (MIP) reformats acquired through the lungs. Optional 10-minute delayed imaging may be performed from the kidneys to the bladder. For radiation dose reduction, the following was used: automated exposure control, adjustment of mA and/or kV according to patient size. COMPARISON: [facility], CT, ABDOMEN/PELVIS WITH CONTRAST, 04/01/2017, 8:00. FINDINGS: Image quality: Excellent. CHEST: Lungs: No pulmonary contusions or lacerations. No acute airspace opacities. No pneumothorax or hemothorax. Central and peripheral airways appear patent and normal in caliber. Mediastinum: No mediastinal hematomas. Heart size is normal. No pericardial effusion. Thoracic aorta and pulmonary arteries demonstrate normal size and enhancement. No mediastinal or hilar adenopathy. Esophagus is normal in caliber. No hiatal hernia. Chest wall: No rib fractures. No subcutaneous emphysema. No axillary or supraclavicular adenopathy. Thyroid gland is unremarkable. ABDOMEN: Solid organs: Liver is normal in size and enhancement, without lacerations. Gallbladder is within normal limits. There is mild prominence of the extrahepatic biliary duct measuring approximately 14 mm. This is increased in size compared to 5 mm on prior exam of 04/01/17. There is no visualized source of obstruction.. Biliary system is non-dilated. Pancreas enhances normally, without transection. Spleen is normal in size and enhancement, without lacerations. No adrenal hematomas. Both kidneys enhance normally, without hydronephrosis or lacerations. Peritoneum and bowel: No free fluid or air. Unenhanced bowel loops demonstrate normal wall thickness and caliber. Nodes and vessels: No retroperitoneal or mesenteric adenopathy. Aorta and inferior vena cava are normal in size and enhancement. Miscellaneous: No ventral hernias. PELVIS: Genitourinary: Bladder wall thickness is normal. Prominent vascularity is present within the lower pelvis surrounding the uterus. Miscellaneous: No inguinal hernias or adenopathy. Bones: Pelvic ring and hip joints appear intact. No vertebral compression fractures. IMPRESSION: 1. No acute osseous or visceral injury. 2. Status post cholecystectomy. There is increased prominence of the common bile duct as detailed above. While this could be related to continued post cholecystectomy sequela, other etiologies cannot be excluded although no definitive source of obstruction is identified. Recommend correlation to laboratory values as appropriate. 3. Increased vascularity surrounding the uterus. This could be related to pelvic congestion syndrome. Overall appearance is unchanged and clinical correlation is recommended. Dictated by: Blanca Tracey M.D. on 09/16/2017 at 14:24 Approved by: Blanca Tracey M.D. on 09/16/2017 at 14:52 <Joana Maldonado DO - Last Filed: 09/17/17 08:50> Lab Data Lab Results 09/16/17 09/16/17 09/16/17 Range/Units 13:40 13:50 13:50 WBC 6.3 (4.5-11.0) X10^3/uL RBC 4.41 (4.0-5.2) X10^6/uL Hgb 13.2 (12.0-16.0) g/dL Hct 39.3 (36-46) % MCV 89.1 (80-100) fL MCH 29.9 (26-34) PG MCHC 33.6 (30-36) % RDW 13.1 (11.6-14.8) % Plt Count 338 (150-400) X10^3/uL Neut % (Auto) 67.9 (50-75) % Lymph % (Auto) 21.5 L (25-40) % [place] % (Auto) 7.8 (3-14) % Eos % (Auto) 2.1 (2-4) % Baso % (Auto) 0.7 (0-2) % Neut # (Auto) 4300 (1516-4890) /uL Sodium 134 L (137-145) mmol/L Potassium 3.9 (3.4-5.1) mmol/L Chloride 95 L (98-107) mmol/L Carbon Dioxide 27 (22-32) mmol/L BUN 8 (7-17) mg/dL Creatinine 0.70 (0.52-1.04) mg/dL Estimated GFR > 60.0 (>60) mL/min BUN/Creatinine Ratio 11.4 (6-22) Glucose 102 (80-110) mg/dL Calcium 9.5 (8.4-10.2) mg/dL Urine Color Cancelled Urine Appearance Cancelled Urine pH Cancelled Ur Specific [place] Cancelled Urine Protein Cancelled Urine Glucose (UA) Cancelled Urine Ketones Cancelled Urine Occult Blood Cancelled Urine Nitrate Cancelled Urine Bilirubin Cancelled Urine Urobilinogen Cancelled Ur Leukocyte Esterase Cancelled Urine RBC 0-1/hpf (0-5/HPF) Urine WBC 5-10/hpf H (0-5/HPF) Ur Squamous Epith Cells 0-1 /hpf Urine Bacteria Moderate (10-30) H (None) Ur Culture Indicated? Specimen cultured Micro UA Comment Not Reportable Discharge Plan Departure Patient Disposition: Home, Self-Care Clinical Impression: Abdominal wall contusion Discharge Date/Time: 09/16/17 15:49 Interventions: ED Discharge Assessment Last Done: 09/16/17 15:48 Instructions: DI for Abdominal Muscle Strain Activity Restrictions/Additional Instructions: I have given you instructions for abdominal muscle strain, as this has some similar properties to the abdominal wall contusion that you have. From the CT scan today and your lab work, does not appear that there are internal organ injuries. Since you are feeling better, it is okay to monitor at home this weekend. Avoid activities that put strain on the abdomen. You can take the tramadol as needed, and you should see your PCP for follow-up to determine whether further treatment and more pain medication is needed. I spoke with his nurse Suzanne and she will call you to coordinate follow up as he wants you to have some additional testing. They will refill pain medicines if you need Prescriptions: New tramadol 50 mg tablet 50 mg PO Q4-6H PRN (Reason: pain) Qty: 10 RF: 0 No Action lisinopril 20 MG tablet 20 mg PO QDAY Qty: 90 RF: 3 tramadol 50 mg tablet 50 mg PO TID PRN (Reason: Pain, Severe) Qty: 90 RF: 0 lorazepam [Ativan] 1 mg tablet 1 tab PO TID RF: 0 hydrocodone-acetaminophen 10-325 mg tablet 1 tab PO Q4H PRN (Reason: Pain, Moderate) RF: 0 Referrals: Lei Rasmussen MD [Primary Care Provider] - <Joana Maldonado DO - Last Filed: 09/17/17 08:50> Cosign ED Attending Traciature Attestation: I was immediately available in the department for consultation. Documentation has been reviewed. I agree with assessment and plan.
--- NOTE | 2017-09-16 13:26 | PC.NURSE ---
Seen Tuesday for same. Provider at bedside
--- NOTE | 2017-09-16 13:45 | ED_ITS ---
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 The impact threw her onto the ground several feet away. She had pain in her ribs, but no other injuries such as head contusion or LOC at the time. She states this was very painful so came in here to the ED, had x-rays and no fractures. She states that pain medication she got here in the ED, Dilaudid, was helpful and she was able to sleep that night. She tried Vinton the next day and this did nothing for her, so she threw it out. She talked with her PCP regarding pain medication and follow-up, but apparently no appointments available. She also began having abdominal pain in the last day and was told to come here for a CT. She states the pain is focused on both sides of her upper abdomen, under the rib area, however she feels like the rib injuries are actually improved. She denies dyspnea or wheeze. She denies any hematuria or vomiting blood or other new c.o. Pain is worse with movement and stretching the area, better sitting with back flexed. Related Data Home Medications Medication Instructions Recorded Confirmed lorazepam [Ativan] 1 tab PO TID 08/11/17 09/16/17 hydrocodone-acetaminophen 1 tab PO Q4H PRN 09/16/17 09/16/17 Previous Rx's Medication Instructions Recorded lisinopril 20 mg PO QDAY #90 tab 06/07/17 tramadol 50 mg tablet 50 mg PO TID PRN #90 tab 09/01/17 tramadol 50 mg PO Q4-6H PRN #10 tab 09/16/17 Allergies Allergy/AdvReac Type Severity Reaction Status Date / Time morphine [MORPHINE] Allergy Severe MY BRAIN Verified 08/24/17 09:45 RECEPTORS TO ACKNOWLEDGE IT permethrin [PERMETHRIN] Allergy Severe vomiting, Verified 08/24/17 09:45 diarrhea, all over rash prednisone [PREDNISONE] Allergy Intermediate SICK TO Verified 08/24/17 09:45 STOMACH HARD TIME THINKING acetaminophen [ACETAMINOPHEN] Allergy Mild vomiting Verified 08/24/17 09:45 aspirin [ASPIRIN] Allergy Mild rectal Verified 08/24/17 09:45 bleeding clindamycin [CLINDAMYCIN] Allergy Mild Verified 08/24/17 09:45 codeine [CODEINE] Allergy Mild Verified 08/24/17 09:45 ibuprofen [IBUPROFEN] Allergy Mild vomiting Verified 08/24/17 09:45 Review of Systems <Laura Vega PA-C - Last Filed: 09/16/17 20:28> Review of Systems All systems reviewed & are unremarkable except as noted in HPI and below Exam <SOWMYA Hinojosa Last Filed: 09/16/17 20:28> Narrative Exam Narrative: GENERAL APPEARANCE: Patient sitting comfortably, in no distress. HEENT: PERRL, EOMI, no scleral icterus NECK: Supple LUNGS: Clear to auscultation bilaterally. HEART: Rate and rhythm regular, normal S1 and S2, no S3 or S4. ABDOMEN: Soft, nondistended, bowel sounds present x 4 quadrants, no masses palpable, no hepatosplenomegaly. She is exquisitely tender mainly inferior to the ribs around both anterior costal margins without guarding or rebound. Very minimal tenderness over the inferior quadrants which is difficult to reproduce. No CVAT EXTREMITIES: No edema, no cyanosis DERMATOLOGIC: No jaundice or exanthem NEUROLOGIC: Alert and oriented with normal speech and coordination Initial Vital Signs Initial Vital Signs: Vital Signs Temperature 98.0 F 09/16/17 10:16 Pulse Rate 86 09/16/17 10:16 Respiratory Rate 20 09/16/17 10:16 Blood Pressure 133/89 H 09/16/17 10:16 Pulse Oximetry 99 09/16/17 10:16 <Joaan Maldonado DO - Last Filed: 09/17/17 08:50> Initial Vital Signs Initial Vital Signs: Vital Signs Temperature 98.0 F 09/16/17 10:16 Pulse Rate 86 09/16/17 10:16 Respiratory Rate 20 09/16/17 10:16 Blood Pressure 133/89 H 09/16/17 10:16 Pulse Oximetry 99 09/16/17 10:16 Course <SOWMYA Hinojosa Last Filed: 09/16/17 20:28> Hospital Course: Patient reported feeling much improved during her stay. We reviewed CT findings. There was some question of bile duct dilatation though this could be due to her postop status. There does not appear to be any urgent need for surgical consultation or admission. I spoke with Dr. Rasmussen is office and they are arranging some other workup for her and will call to arrange follow-up. Also advised that I will prescribe a small amount of tramadol as Vinton was not effective, but patient may need pain medications refilled through them and she was agreeable with plan Orders Ordered: Discontinued Medications Hydromorphone HCl (Dilaudid) 1 mg IV Q4H PRN PRN Reason: Pain, Severe Last Admin: 09/16/17 13:57 Dose: 1 mg Sodium Chloride (Normal Saline 0.9%) 1,000 mls @ 1,000 mls/hr IV BOLUS ONE Stop: 09/16/17 14:28 Last Infusion: 09/16/17 14:45 Dose: 0 mls/hr Admin: 09/16/17 13:57 Dose: 1,000 mls/hr Tramadol HCl (Ultram) 100 mg PO NOW ONE Stop: 09/16/17 13:30 Last Admin: 09/16/17 14:29 Dose: Not Given Vital Signs - 8 hr 09/16/17 15:23 Pulse Rate 74 Respiratory Rate 16 Blood Pressure [Left Arm] 158/102 H Pulse Oximetry 99 <Joana Maldonado, DO - Last Filed: 09/17/17 08:50> Orders Ordered: Discontinued Medications Hydromorphone HCl (Dilaudid) 1 mg IV Q4H PRN PRN Reason: Pain, Severe Last Admin: 09/16/17 13:57 Dose: 1 mg Sodium Chloride (Normal Saline 0.9%) 1,000 mls @ 1,000 mls/hr IV BOLUS ONE Stop: 09/16/17 14:28 Last Infusion: 09/16/17 14:45 Dose: 0 mls/hr Admin: 09/16/17 13:57 Dose: 1,000 mls/hr Tramadol HCl (Ultram) 100 mg PO NOW ONE Stop: 09/16/17 13:30 Last Admin: 09/16/17 14:29 Dose: Not Given Vital Signs - 8 hr 09/16/17 15:23 Pulse Rate 74 Respiratory Rate 16 Blood Pressure [Left Arm] 158/102 H Pulse Oximetry 99 MDM - Extremity Injury (Upper) <Laura Vega PA-C - Last Filed: 09/16/17 20:28> Lab Data Result diagrams: 09/16/17 13:50 09/16/17 13:50 Lab Results 09/16/17 09/16/17 09/16/17 Range/Units 13:40 13:50 13:50 WBC 6.3 (4.5-11.0) X10^3/uL RBC 4.41 (4.0-5.2) X10^6/uL Hgb 13.2 (12.0-16.0) g/dL Hct 39.3 (36-46) % MCV 89.1 (80-100) fL MCH 29.9 (26-34) PG MCHC 33.6 (30-36) % RDW 13.1 (11.6-14.8) % Plt Count 338 (150-400) X10^3/uL Neut % (Auto) 67.9 (50-75) % Lymph % (Auto) 21.5 L (25-40) % [place] % (Auto) 7.8 (3-14) % Eos % (Auto) 2.1 (2-4) % Baso % (Auto) 0.7 (0-2) % Neut # (Auto) 4300 (5679-2872) /uL Sodium 134 L (137-145) mmol/L Potassium 3.9 (3.4-5.1) mmol/L Chloride 95 L (98-107) mmol/L Carbon Dioxide 27 (22-32) mmol/L BUN 8 (7-17) mg/dL Creatinine 0.70 (0.52-1.04) mg/dL Estimated GFR > 60.0 (>60) mL/min BUN/Creatinine Ratio 11.4 (6-22) Glucose 102 (80-110) mg/dL Calcium 9.5 (8.4-10.2) mg/dL Urine Color Cancelled Urine Appearance Cancelled Urine pH Cancelled Ur Specific [place] Cancelled Urine Protein Cancelled Urine Glucose (UA) Cancelled Urine Ketones Cancelled Urine Occult Blood Cancelled Urine Nitrate Cancelled Urine Bilirubin Cancelled Urine Urobilinogen Cancelled Ur Leukocyte Esterase Cancelled Urine RBC 0-1/hpf (0-5/HPF) Urine WBC 5-10/hpf H (0-5/HPF) Ur Squamous Epith Cells 0-1 /hpf Urine Bacteria Moderate (10-30) H (None) Ur Culture Indicated? Specimen cultured Micro UA Comment Not Reportable Imaging Data CT scan - abdomen: Radiologist's impression: [address] [address] [address] Scan Report Signed Patient: Claudia Manzo MR#: [id number] : 1950 Acct:[id number] Age/Sex: 67 / F Date of Service: 09/16/17 Loc: ED Accession Number: [id number] Procedure: CT chest abd pel w con Ordering Provider: Laura Vega P.A-C PROCEDURE: CT CHEST ABD PEL W CON INDICATIONS: contusions, splenic, liver pain, KICK TO BACK AREA TUESDAY TECHNIQUE: After the administration of intravenous contrast, 5 mm thick sections acquired from the lung apices to the symphysis. 2.5 mm thick coronal and sagittal reformats were acquired. Additional 7 mm thick coronal maximum intensity projection (MIP) reformats acquired through the lungs. Optional 10-minute delayed imaging may be performed from the kidneys to the bladder. For radiation dose reduction, the following was used: automated exposure control, adjustment of mA and/or kV according to patient size. COMPARISON: [facility], CT, ABDOMEN/PELVIS WITH CONTRAST, 04/01/2017, 8: 00. FINDINGS: Image quality: Excellent. CHEST: Lungs: No pulmonary contusions or lacerations. No acute airspace opacities. No pneumothorax or hemothorax. Central and peripheral airways appear patent and normal in caliber. Mediastinum: No mediastinal hematomas. Heart size is normal. No pericardial effusion. Thoracic aorta and pulmonary arteries demonstrate normal size and enhancement. No mediastinal or hilar adenopathy. Esophagus is normal in caliber. No hiatal hernia. Chest wall: No rib fractures. No subcutaneous emphysema. No axillary or supraclavicular adenopathy. Thyroid gland is unremarkable. ABDOMEN: Solid organs: Liver is normal in size and enhancement, without lacerations. Gallbladder is within normal limits. There is mild prominence of the extrahepatic biliary duct measuring approximately 14 mm. This is increased in size compared to 5 mm on prior exam of 04/01/17. There is no visualized source of obstruction.. Biliary system is non-dilated. Pancreas enhances normally, without transection. Spleen is normal in size and enhancement, without lacerations. No adrenal hematomas. Both kidneys enhance normally, without hydronephrosis or lacerations. Peritoneum and bowel: No free fluid or air. Unenhanced bowel loops demonstrate normal wall thickness and caliber. Nodes and vessels: No retroperitoneal or mesenteric adenopathy. Aorta and inferior vena cava are normal in size and enhancement. Miscellaneous: No ventral hernias. PELVIS: Genitourinary: Bladder wall thickness is normal. Prominent vascularity is present within the lower pelvis surrounding the uterus. Miscellaneous: No inguinal hernias or adenopathy. Bones: Pelvic ring and hip joints appear intact. No vertebral compression fractures. IMPRESSION: 1. No acute osseous or visceral injury. 2. Status post cholecystectomy. There is increased prominence of the common bile duct as detailed above. While this could be related to continued post cholecystectomy sequela, other etiologies cannot be excluded although no definitive source of obstruction is identified. Recommend correlation to laboratory values as appropriate. 3. Increased vascularity surrounding the uterus. This could be related to pelvic congestion syndrome. Overall appearance is unchanged and clinical correlation is recommended. Dictated by: Blanca Tracey M.D. on 09/16/2017 at 14:24 Approved by: Blanca Tracey M.D. on 09/16/2017 at 14:52 <Joana Maldonado DO - Last Filed: 09/17/17 08:50> Lab Data Lab Results 09/16/17 09/16/17 09/16/17 Range/Units 13:40 13:50 13:50 WBC 6.3 (4.5-11.0) X10^3/uL RBC 4.41 (4.0-5.2) X10^6/uL Hgb 13.2 (12.0-16.0) g/dL Hct 39.3 (36-46) % MCV 89.1 (80-100) fL MCH 29.9 (26-34) PG MCHC 33.6 (30-36) % RDW 13.1 (11.6-14.8) % Plt Count 338 (150-400) X10^3/uL Neut % (Auto) 67.9 (50-75) % Lymph % (Auto) 21.5 L (25-40) % [place] % (Auto) 7.8 (3-14) % Eos % (Auto) 2.1 (2-4) % Baso % (Auto) 0.7 (0-2) % Neut # (Auto) 4300 (6403-6090) /uL Sodium 134 L (137-145) mmol/L Potassium 3.9 (3.4-5.1) mmol/L Chloride 95 L (98-107) mmol/L Carbon Dioxide 27 (22-32) mmol/L BUN 8 (7-17) mg/dL Creatinine 0.70 (0.52-1.04) mg/dL Estimated GFR > 60.0 (>60) mL/min BUN/Creatinine Ratio 11.4 (6-22) Glucose 102 (80-110) mg/dL Calcium 9.5 (8.4-10.2) mg/dL Urine Color Cancelled Urine Appearance Cancelled Urine pH Cancelled Ur Specific [place] Cancelled Urine Protein Cancelled Urine Glucose (UA) Cancelled Urine Ketones Cancelled Urine Occult Blood Cancelled Urine Nitrate Cancelled Urine Bilirubin Cancelled Urine Urobilinogen Cancelled Ur Leukocyte Esterase Cancelled Urine RBC 0-1/hpf (0-5/HPF) Urine WBC 5-10/hpf H (0-5/HPF) Ur Squamous Epith Cells 0-1 /hpf Urine Bacteria Moderate (10-30) H (None) Ur Culture Indicated? Specimen cultured Micro UA Comment Not Reportable Discharge Plan Departure Patient Disposition: Home, Self-Care Clinical Impression: Abdominal wall contusion Discharge Date/Time: 09/16/17 15:49 Interventions: ED Discharge Assessment Last Done: 09/16/17 15:48 Instructions: DI for Abdominal Muscle Strain Activity Restrictions/Additional Instructions: I have given you instructions for abdominal muscle strain, as this has some similar properties to the abdominal wall contusion that you have. From the CT scan today and your lab work, does not appear that there are internal organ injuries. Since you are feeling better, it is okay to monitor at home this weekend. Avoid activities that put strain on the abdomen. You can take the tramadol as needed, and you should see your PCP for follow-up to determine whether further treatment and more pain medication is needed. I spoke with his nurse Suzanne and she will call you to coordinate follow up as he wants you to have some additional testing. They will refill pain medicines if you need Prescriptions: New tramadol 50 mg tablet 50 mg PO Q4-6H PRN (Reason: pain) Qty: 10 RF: 0 No Action lisinopril 20 MG tablet 20 mg PO QDAY Qty: 90 RF: 3 tramadol 50 mg tablet 50 mg PO TID PRN (Reason: Pain, Severe) Qty: 90 RF: 0 lorazepam [Ativan] 1 mg tablet 1 tab PO TID RF: 0 hydrocodone-acetaminophen 10-325 mg tablet 1 tab PO Q4H PRN (Reason: Pain, Moderate) RF: 0 Referrals: Lei Rasmussen MD [Primary Care Provider] - <Joana Maldonado DO - Last Filed: 09/17/17 08:50> Cosign ED Attending Traciature Attestation: I was immediately available in the department for consultation. Documentation has been reviewed. I agree with assessment and plan.
[2017-09-16 13:57] LABS: Add Manual Diff / Slide Review NO; Basophils Percent Auto 0.7 % (0-2); Eosinophils Percent Auto 2.1 % (2-4); Hematocrit 39.3 % (36-46); Hemoglobin 13.2 g/dL (12.0-16.0); Lymphocytes Percent Auto 21.5 % (25-40); Mean Corpuscular HGB Conc 33.6 % (30-36); Mean Corpuscular Hemoglobin 29.9 PG (26-34); Mean Corpuscular Volume 89.1 fL (80-100); Monocytes Percent Auto 7.8 % (3-14); Neutrophils Absolute Auto 4300 /uL (3000-5900); Neutrophils Percent Auto 67.9 % (50-75); Platelet Count 338 X10^3/uL (150-400); Red Blood Cell Count 4.41 X10^6/uL (4.0-5.2); Red Cell Distribution Width 13.1 % (11.6-14.8); White Blood Cell Count 6.3 X10^3/uL (4.5-11.0)
[2017-09-16] MEDS: SODIUM CHLORIDE 0.9% 1,000 ML 1000 ML IV (13:57)
[2017-09-16] MEDS: HYDROMORPHONE 0.5 MG INJ 1 MG IV (13:57)
--- NOTE | 2017-09-16 14:06 | DI.CT.S_ITS ---
PROCEDURE: CT CHEST ABD PEL W CON INDICATIONS: contusions, splenic, liver pain, KICK TO BACK AREA TUESDAY TECHNIQUE: After the administration of intravenous contrast, 5 mm thick sections acquired from the lung apices to the symphysis. 2.5 mm thick coronal and sagittal reformats were acquired. Additional 7 mm thick coronal maximum intensity projection (MIP) reformats acquired through the lungs. Optional 10-minute delayed imaging may be performed from the kidneys to the bladder. For radiation dose reduction, the following was used: automated exposure control, adjustment of mA and/or kV according to patient size. COMPARISON: [facility], CT, ABDOMEN/PELVIS WITH CONTRAST, 04/01/2017, 8:00. FINDINGS: Image quality: Excellent. CHEST: Lungs: No pulmonary contusions or lacerations. No acute airspace opacities. No pneumothorax or hemothorax. Central and peripheral airways appear patent and normal in caliber. Mediastinum: No mediastinal hematomas. Heart size is normal. No pericardial effusion. Thoracic aorta and pulmonary arteries demonstrate normal size and enhancement. No mediastinal or hilar adenopathy. Esophagus is normal in caliber. No hiatal hernia. Chest wall: No rib fractures. No subcutaneous emphysema. No axillary or supraclavicular adenopathy. Thyroid gland is unremarkable. ABDOMEN: Solid organs: Liver is normal in size and enhancement, without lacerations. Gallbladder is within normal limits. There is mild prominence of the extrahepatic biliary duct measuring approximately 14 mm. This is increased in size compared to 5 mm on prior exam of 04/01/17. There is no visualized source of obstruction.. Biliary system is non-dilated. Pancreas enhances normally, without transection. Spleen is normal in size and enhancement, without lacerations. No adrenal hematomas. Both kidneys enhance normally, without hydronephrosis or lacerations. Peritoneum and bowel: No free fluid or air. Unenhanced bowel loops demonstrate normal wall thickness and caliber. Nodes and vessels: No retroperitoneal or mesenteric adenopathy. Aorta and inferior vena cava are normal in size and enhancement. Miscellaneous: No ventral hernias. PELVIS: Genitourinary: Bladder wall thickness is normal. Prominent vascularity is present within the lower pelvis surrounding the uterus. Miscellaneous: No inguinal hernias or adenopathy. Bones: Pelvic ring and hip joints appear intact. No vertebral compression fractures. IMPRESSION: 1. No acute osseous or visceral injury. 2. Status post cholecystectomy. There is increased prominence of the common bile duct as detailed above. While this could be related to continued post cholecystectomy sequela, other etiologies cannot be excluded although no definitive source of obstruction is identified. Recommend correlation to laboratory values as appropriate. 3. Increased vascularity surrounding the uterus. This could be related to pelvic congestion syndrome. Overall appearance is unchanged and clinical correlation is recommended. Dictated by: Blanca Tracey M.D. on 09/16/2017 at 14:24 Approved by: Blanca Tracey M.D. on 09/16/2017 at 14:52
[2017-09-16 14:10] LABS: Bacteria Urine Moderate (10-30); Culture Indicated Urine Specimen Cultured; RBC Urine 0-1/HPF (0-5/HPF); Squamous Epithelial Cell Urine 0-1 /HPF; WBC Urine 5-10/HPF (0-5/HPF)
[2017-09-16 14:12] LABS: BUN Creatinine Ratio 11.4 (6-22); Blood Urea Nitrogen 8 mg/dL (7-17); Calcium 9.5 mg/dL (8.4-10.2); Carbon Dioxide 27 mmol/L (22-32); Chloride 95 mmol/L (98-107); Estimated Glomerular Filt Rate > 60.0 mL/min (>60); Glucose 102 mg/dL (80-110); HEMOLYSIS < 15 (0-50); Potassium 3.9 mmol/L (3.4-5.1); Sodium 134 mmol/L (137-145)
[2017-09-16 15:23] VITALS: BP 158/102; PULSE 74; RESP 16; O2SAT 99
== END 2017-09-16 15:49 | disposition home or self-care (01) ==
PROVIDERS: Emergency Provider Internal Medicine; Family Provider Family Medicine; PCP Family Medicine
DX: S30.1XXA Contusion of abdominal wall, initial encounter (principal); W55.22XA Struck by cow, initial encounter
CPT/HCPCS: 36591; 71260; 74177; 80048; 81003; 81015; 85025; 87086; 96361; 96374; 99283; 99285; J1170; Q9967

== ENCOUNTER → 2017-09-23 14:56 | Outpatient (CLI) | payer MEDICARE, SELFPAY ==
--- NOTE | 2017-09-23 14:58 | DI.MRI.S_ITS ---
PROCEDURE: MR ABDOMEN WO/W CON INDICATIONS: abdominal pain and contusion of right ribs TECHNIQUE: Coronal HASTE, axial 2D FLASH in- and [id number]; axial breath-hold T2 FSE. Dynamic axial VIBE during the administration of contrast; post-contrast coronal VIBE or 2D FLASH with fat saturation from the hepatic dome to the iliac crests. Optional diffusion weighted imaging and ADC may be performed. COMPARISON: [facility], CT, CT CHEST ABD PEL W CON, 09/16/2017, 13:48. FINDINGS: Image quality: Excellent. Lung bases: No basal pleural effusions. Heart size is normal. Solid organs: Liver is normal in size and enhancement. Gallbladder appears previously resected. Biliary system is non dilated. Pancreas is normal in morphology. Spleen is normal in size and enhancement. No adrenal nodules. Both kidneys demonstrate normal size and enhancement, without hydronephrosis. Nodes and vessels: No retroperitoneal or mesenteric adenopathy by size criteria. Aorta and inferior vena cava are normal in size. Bowel and peritoneum: Unenhanced bowel loops are normal in caliber. No free fluid. Bones and soft tissues: No ventral hernias. Bone marrow is normal in overall signal. Note is made of asymmetric thickness of the body wall musculature lateral to the lower half of the liver at the lateral and anterolateral body wall these thickness on the right is 2.2 cm and that on the left is 1.2 cm. Additionally, there is a subtle increased fluid signal within the overlying subcutaneous fatty soft tissues best seen on series 18 image 22. IMPRESSION: No rib fracture found, nor is there evidence of hepatic contusion or fracture. Note is made, however, of asymmetric thickness of the body wall musculature peripheral to the lateral and anterolateral right hepatic lobe, with mild overlying edema in the subcutaneous fat. Posttraumatic contusion of the musculature is the likely cause. A focal hematoma or rupture of muscular substance is not found. Dictated by: Sam Kamara M.D. on 09/23/2017 at 16:30 Approved by: Sam Kamara M.D. on 09/23/2017 at 16:40
== END ==
PROVIDERS: Family Provider Family Medicine; PCP Family Medicine; Visit Provider Family Medicine
DX: R10.9 Unspecified abdominal pain (principal); S20.211A Contusion of right front wall of thorax, initial encounter
CPT/HCPCS: 74183; A9579

== ENCOUNTER → 2018-02-10 09:34 | Outpatient (CLI) | payer MEDICARE, SELFPAY ==
[2018-02-10 11:07] LABS: Thyroid Stimulating Hormone 0.71 uIU/mL (0.47-4.68)
[2018-02-10 11:52] LABS: Alanine Aminotransferase 32 IU/L (9-52); Albumin 4.6 g/dL (3.5-5.0); Albumin Globulin Ratio 1.7 (1.0-2.8); Alkaline Phosphatase 53 U/L (38-126); Amylase 88 U/L (30-110); Aspartate Aminotransferase 30 IU/L (14-36); Bilirubin Total 0.6 mg/dL (0.2-1.3); Bilirubin Unconjugated 0.4 mg/dL (0.0-1.1); Blood Urea Nitrogen 15 mg/dL (7-17); Calcium 9.5 mg/dL (8.4-10.2); Carbon Dioxide 27 mmol/L (22-32); Chloride 104 mmol/L (98-107); Estimated Glomerular Filt Rate 55.6 mL/min (>60); Globulin 2.7 g/dL (1.7-4.1); Glucose 112 mg/dL (80-110); HEMOLYSIS < 15 (0-50); Lipase 104 U/L (23-300); Sodium 142 mmol/L (137-145); Total Protein 7.3 g/dL (6.3-8.2)
== END ==
PROVIDERS: Family Provider Family Medicine; PCP Family Medicine; Visit Provider Family Medicine
DX: M81.0 Age-related osteoporosis without current pathological fracture (principal); Z78.0 Asymptomatic menopausal state; S23.9XXA Sprain of unspecified parts of thorax, initial encounter; S20.211A Contusion of right front wall of thorax, initial encounter; R10.84 Generalized abdominal pain; Z82.62 Family history of osteoporosis; Z85.3 Personal history of malignant neoplasm of breast
CPT/HCPCS: 36415; 77080; 80053; 80076; 82150; 83690; 84443

== ENCOUNTER → 2018-02-21 11:14 | Outpatient (CLI) | payer MEDICARE, SELFPAY ==
[2018-02-21 12:33] LABS: Vitamin D 25 Hydroxy (D3) 46.3 ng/mL (30.0-100.0)
== END ==
PROVIDERS: Family Provider Family Medicine; PCP Family Medicine; Visit Provider Family Medicine
DX: M81.0 Age-related osteoporosis without current pathological fracture (principal)
CPT/HCPCS: 36415; 82306

== ENCOUNTER 2018-06-11 19:57 | Emergency (ER) | payer MEDICARE, SELFPAY ==
[2018-06-11 20:01] VITALS: BP 137/87; PULSE 90; RESP 20; TEMP 38.2; O2SAT 99; BMI 18.3
[2018-06-11 20:15] VITALS: BP 137/87; PULSE 90; RESP 20; TEMP 38.2; O2SAT 99; BMI 18.3
== END 2018-06-11 20:40 | disposition left against medical advice (07) ==
PROVIDERS: Emergency Provider Emergency Medicine; Family Provider Family Medicine; PCP Family Medicine
DX: R00.0 Tachycardia, unspecified (principal)
CPT/HCPCS: 93005; 99282

== ENCOUNTER → 2018-07-31 10:02 | Outpatient (CLI) | payer MEDICARE, SELFPAY ==
--- NOTE | 2018-07-31 10:05 | DI.RAD.S_ITS ---
PROCEDURE: XR SKULL MIN 4V INDICATIONS: hit head TECHNIQUE: 4 view(s) of the skull acquired. COMPARISON: None. FINDINGS: Bones: No fractures. No suspicious bony lesions. Visualized sinuses appear clear. Soft tissues: No soft tissue calcifications. No suspicious soft tissue densities. IMPRESSION: No trauma found. Dictated by: Sam Kamara M.D. on 07/31/2018 at 11:15 Approved by: Sam Kamara M.D. on 07/31/2018 at 11:16
== END ==
PROVIDERS: PCP Family Medicine; Visit Provider Family Medicine
DX: S09.90XA Unspecified injury of head, initial encounter (principal); X58.XXXA Exposure to other specified factors, initial encounter
CPT/HCPCS: 70260

== ENCOUNTER → 2019-04-03 09:50 | Outpatient (CLI) | payer MEDICARE, SELFPAY ==
[2019-04-03 09:57] LABS: WBC Urine None Seen (0-5/HPF)
[2019-04-03 10:17] LABS: Add Manual Diff / Slide Review NO; Basophils Absolute Auto 0 /uL (0-100); Basophils Percent Auto 0.6 % (0-2); Eosinophils Absolute Auto 200 /uL (0-450); Eosinophils Percent Auto 3.8 % (2-4); Hematocrit 45.4 % (36-46); Lymphocytes Absolute Auto 1200 /uL (1100-4500); Lymphocytes Percent Auto 27.5 % (25-40); Mean Corpuscular HGB Conc 33.1 % (30-36); Mean Corpuscular Hemoglobin 29.8 PG (26-34); Mean Corpuscular Volume 89.8 fL (80-100); Monocytes Absolute Auto 400 /uL (0-900); Monocytes Percent Auto 8.7 % (3-14); Neutrophils Absolute Auto 2700 /uL (1500-7000); Neutrophils Percent Auto 59.4 % (50-75); Platelet Count 273 X10^3/uL (150-400); Red Blood Cell Count 5.05 X10^6/uL (4.0-5.2); Red Cell Distribution Width 14.2 % (11.6-14.8); White Blood Cell Count 4.5 X10^3/uL (4.5-11.0)
[2019-04-03 10:18] LABS: Appearance Urine UA CLEAR; Bilirubin Urine UA NEGATIVE (NEGATIVE); Color Urine UA YELLOW; Glucose Urine UA NEGATIVE (Negative); Ketones Urine UA NEGATIVE (NEGATIVE); Leukocyte Esterase Urine UA NEGATIVE (NEGATIVE); Nitrite Urine UA NEGATIVE (Negative); Occult Blood Urine UA 1+ (Negative); Protein Urine UA NEGATIVE (Negative); Specific Gravity Urine UA <=1.005 (1.000-1.035); Urobilinogen Urine UA 0.2 E.U./dL (0.2)
[2019-04-03 10:21] LABS: pH Urine UA 7.5 (4.5-8.0)
[2019-04-03 10:25] LABS: Bacteria Urine Occasional (0-1); Culture Indicated Urine Cult Not Indicated; RBC Urine 1-5/HPF (0-5/HPF)
[2019-04-03 10:35] LABS: Alanine Aminotransferase 27 IU/L (<35); Albumin 4.8 g/dL (3.5-5.0); Albumin Globulin Ratio 1.8 (1.0-2.8); Alkaline Phosphatase 51 U/L (38-126); Amylase 83 U/L (30-110); Aspartate Aminotransferase 33 IU/L (14-36); BUN Creatinine Ratio 13.3 (6-22); Blood Urea Nitrogen 12 mg/dL (7-17); Calcium 10.3 mg/dL (8.4-10.2); Carbon Dioxide 29 mmol/L (22-32); Chloride 104 mmol/L (98-107); Estimated Glomerular Filt Rate > 60.0 mL/min (>60); Globulin 2.7 g/dL (1.7-4.1); Glucose 103 mg/dL (80-110); HEMOLYSIS < 15 (0-50); Lipase 107 U/L (23-300); Sodium 141 mmol/L (137-145); Total Protein 7.5 g/dL (6.3-8.2)
[2019-04-03 10:41] LABS: Potassium 5.9 mmol/L (3.4-5.1)
== END ==
PROVIDERS: PCP Family Medicine; Visit Provider Family Medicine
DX: R10.84 Generalized abdominal pain (principal)
CPT/HCPCS: 36415; 80053; 81001; 82150; 83690; 85025

== ENCOUNTER → 2019-04-10 06:36 | Outpatient (CLI) | payer MEDICARE, SELFPAY ==
--- NOTE | 2019-04-10 07:27 | DI.CT.S_ITS ---
PROCEDURE: CT ABDOMEN PELVIS W CON INDICATIONS: Abdominal pain TECHNIQUE: After the administration of oral and intravenous contrast, 5 mm thick sections acquired from the diaphragms to the symphysis. 5 mm thick coronal and sagittal reformats were performed. For radiation dose reduction, the following was used: automated exposure control, adjustment of mA and/or kV according to patient size. COMPARISON: [facility], CT, ABDOMEN/PELVIS WITH CONTRAST, 04/01/2017, 8:00. FINDINGS: Image quality: Excellent. ABDOMEN: Lung bases: Lung bases are clear. Heart size is normal. Solid organs: Liver is normal in size and enhancement. Gallbladder surgically absent. Biliary system is non-dilated. Pancreas enhances normally. Spleen is normal in size and enhancement. No adrenal nodules. Kidneys are normal in size and enhancement, without hydronephrosis. Peritoneum and bowel: Stomach, small bowel, and colon loops are normal in caliber and wall thickness. No free fluid or air. Nodes and vessels: No retroperitoneal or mesenteric adenopathy. Aorta and inferior vena cava are normal in caliber. Miscellaneous: No ventral hernias. PELVIS: Genitourinary: Bladder wall thickness is normal. Prominent parametrial vessels noted bilaterally. Gonadal veins appear prominent. Miscellaneous: No inguinal hernias or adenopathy. Bones: No suspicious bony lesions. No vertebral body compression fractures. IMPRESSION: Bilateral prominent parametrial veins and gonadal veins, which raise the possibility of pelvic congestion syndrome (a chronic finding). Recommend clinical correlation Large amount of stool diffusely suggestive of constipation. Hepatic steatosis Status post cholecystectomy. Dictated by: Baldomero Kelly M.D. on 04/10/2019 at 9:26 Approved by: Baldomero Kelly M.D. on 04/10/2019 at 9:32
== END ==
PROVIDERS: PCP Family Medicine; Visit Provider Family Medicine
DX: R10.84 Generalized abdominal pain (principal); K76.0 Fatty (change of) liver, not elsewhere classified; Z90.49 Acquired absence of other specified parts of digestive tract
CPT/HCPCS: 74177; Q9967

== ENCOUNTER 2019-04-23 09:33 | Day surgery (SDC) | payer MEDICARE, SELFPAY ==
[2019-04-23 10:01] VITALS: BP 167/101; PULSE 78; RESP 15; TEMP 36.7; O2SAT 98; BMI 18.1
[2019-04-23] MEDS: SODIUM CHLORIDE 0.9% 1,000 ML 200 ML IV (10:15)
--- NOTE | 2019-04-23 11:21 | PM.HP.1 ---
History of Present Illness History of Present Illness Date Patient Seen: 04/23/19 Time Patient Seen: 11:32 Chief complaint: [id number] Narrative: Patient presents for colorectal screening. Last colonoscopy was 8 years ago and normal. She has been having new left lower quadrant abdominal pain unexplained nature for which the a colonoscopy was ordered by her primary care physician. No personal or family history of colon cancer. On further history denies any recent gastrointestinal symptoms. No nausea, vomiting, loss of appetite, unexplained weight loss, change in bowel habits, diarrhea, constipation, melena, hematochezia, or bright red blood per rectum. Patient History Medical History HX: breast cancer (Resolved ~2005) Surgical History History of lumpectomy (~2005) Status post cholecystectomy (~1973) Family & Social History Social History: household members none Tobacco & Substance use: Smoking Status Never smoker alcohol intake former alcohol intake frequency 3 or more drinks per day Substance Use Type does not use Meds Home Medications and Allergies Home Medications Medication Instructions Recorded Confirmed Type lorazepam 1 mg tablet See Rx Instructions .ROUTE 02/26/19 04/23/19 Rx .COMPLEX #90 tablet metoprolol succinate 25 mg capsule 25 mg PO DAILY #90 each 04/03/19 04/23/19 Rx sprinkle, ext. release 24 hr tramadol 50 mg tablet See Rx Instructions .ROUTE 04/23/19 04/23/19 Rx .COMPLEX #90 tablet Allergies Allergy/AdvReac Type Severity Reaction Status Date / Time morphine [MORPHINE] Allergy Severe MY BRAIN Verified 09/11/18 09:09 RECEPTORS TO ACKNOWLEDGE IT permethrin [PERMETHRIN] Allergy Severe vomiting, Verified 09/11/18 09:09 diarrhea, all over rash prednisone [PREDNISONE] Allergy Intermediate SICK TO Verified 09/11/18 09:09 STOMACH HARD TIME THINKING acetaminophen [ACETAMINOPHEN] Allergy Mild vomiting Verified 09/11/18 09:09 aspirin [ASPIRIN] Allergy Mild rectal Verified 09/11/18 09:09 bleeding clindamycin [CLINDAMYCIN] Allergy Mild Verified 09/11/18 09:09 codeine [CODEINE] Allergy Mild Verified 09/11/18 09:09 ibuprofen [IBUPROFEN] Allergy Mild vomiting Verified 09/11/18 09:09 Review of Systems Review of Systems Narrative: A 10 point review of systems is negative except as noted in the HPI Exam Vital Signs (past 8 hours): - 04/23/19 10:01 Temperature 98.1 F Pulse Rate 78 Respiratory Rate 15 Blood Pressure 167/101 H Pulse Oximetry 98 Oxygen Delivery Method Room Air Narrative Exam Narrative: General-no acute distress, well nourished HEENT-moist mucous membranes, no scleral icterus Neck-supple, no lymphadenopathy Chest- non labored respirations, clear to auscultation bilaterally Cardiac-regular rate no peripheral edema Abdomen-soft, nontender, non distended Extremities-warm, well perfused Neurological-alert and oriented, no focal deficits Assessment & Plan Assessment and plan (1) Screening for colon cancer: Current visit: Yes Status: Acute Assessment & Plan narrative: The patient requires colorectal screening and colonoscopy is recommended. Technical details were discussed. Risks, benefits, alternatives explained. Risks including but not limited to myocardial infarction, aspiration, bleeding, pain, missed lesion, incomplete examination, need for further radiographic studies, colonic perforation, and need for major abdominal surgery were discussed. All questions were answered to their satisfaction, and they are in agreement with this plan.
--- NOTE | 2019-04-23 12:05 | PM.OP.ENDO ---
Operative Date/Time/Diagnoses Date of procedure: 04/23/19 Time of procedure: 12:05 Pre-op diagnosis: Unspecified abdominal pain Post-op diagnosis: same Procedure & Clinicians Study performed: Colonoscopy Same procedure as scheduled: Yes Indications: 68-year-old female last colonoscopy 8 years ago normal new onset left lower quadrant pain of unclear etiology presents for diagnostic colonoscopy Surgeon: Antwon Lopez Procedure Notes SCOAP/Timeout: Performed Procedure in detail: Patient placed in left lateral decubitus position. Time out was performed. Procedural sedation was administered with Versed and Fentanyl. A rectal exam demonstrated no external hemorrhoids no internal masses. Colonoscopy scope was placed into the rectum and advanced through the colon to the cecum. The ileocecal valve was identified. The scope was then slowly withdrawn examining colon thoroughly in all directions. The colonoscopy was notable for the following 1. Sigmoid diverticulosis 2. No masses or polyps 3. Quality of prep excellent Scope withdrawal time: 6 Sedation minutes: 20 Findings: diverticulosis Specimen(s): none sent Complications: none Impression: Mild sigmoid diverticulosis Post-procedure Recommendations: Colonscopy in 10 years and High fiber diet Disposition: same day surgery
[2019-04-23] MEDS: fentaNYL 250 MCG/5 ML INJ IV (12:07)
[2019-04-23] MEDS: MIDAZOLAM 5 MG/5 ML VIAL IV (12:07)
[2019-04-23 12:10] VITALS: BP 121/93; PULSE 63; RESP 20; TEMP 36.3
[2019-04-23 12:16] VITALS: BP 143/83; PULSE 90; RESP 20; O2SAT 98
[2019-04-23 12:20] VITALS: BP 125/89; PULSE 63; RESP 20; O2SAT 97
[2019-04-23 12:24] VITALS: BP 131/87; PULSE 62; RESP 18; TEMP 36.6; O2SAT 97
== END 2019-04-23 12:40 | disposition home or self-care (01) ==
PROVIDERS: Family Provider Family Medicine; PCP Family Medicine; Visit Provider Surgery
PROC: 0DJD8ZZ Inspection of Lower Intestinal Tract, Via Natural or Artificial Opening Endoscopic (ICD-10-PCS; CPT 45378; principal; 2019-04-23 11:30)
DX: K57.30 Diverticulosis of large intestine without perforation or abscess without bleeding (principal)
CPT/HCPCS: 45378; 99152; J2250; J3010

== ENCOUNTER → 2019-04-27 10:37 | Outpatient (CLI) | payer MEDICARE, SELFPAY ==
--- NOTE | 2019-04-27 10:38 | DI.US.S_ITS ---
PROCEDURE: US PELVIC COMPLETE INDICATIONS: PAIN TECHNIQUE: Real-time scanning was performed of the pelvic organs, with image documentation. Additional endovaginal scanning was necessary due to incomplete visualization of the adnexal and endometrial structures by transabdominal scanning. COMPARISON: [facility], , PELVIC COMPLETE, 10/04/2013, 13:51. FINDINGS: Transabdominal scanning: Limited scanning through the kidneys shows no hydronephrosis. No pathologic free abdominal or pelvic fluid. Endovaginal scanning: Uterus: Uterus is normal in size at 5.4 x 3.1 x 2.5 cm. The endometrium measures 1.8 mm in combined thickness. Prominent parametrial vessels Ovaries: Right ovary measures 2.2 x 1.0 x 1.3 cm. Left ovary measures 2.3 x 1.1 x 1.4 cm. The ovaries appear grossly unremarkable. IMPRESSION: Prominent enlarged parametrial vessels raise the possibility of pelvic congestion syndrome. Otherwise, negative examination Dictated by: Baldomero Kelly M.D. on 04/27/2019 at 16:30 Approved by: Baldomero Kelly M.D. on 04/27/2019 at 16:32
== END ==
PROVIDERS: PCP Family Medicine; Visit Provider Family Medicine
DX: N94.89 Other specified conditions associated with female genital organs and menstrual cycle (principal); R10.2 Pelvic and perineal pain
CPT/HCPCS: 76830; 76856

== ENCOUNTER 2019-12-24 14:54 | Emergency (ER) | payer MEDICARE, SELFPAY ==
[2019-12-24] VITALS (8 sets, daily range): BP systolic 134–186; BP diastolic 91–103; PULSE 64–79; RESP 13–23; TEMP 36.7; O2SAT 95–99; BMI 17.7
--- NOTE | 2019-12-24 15:04 | DI.RAD.S_ITS ---
PROCEDURE: XR CHEST 1V INDICATIONS: chest pain TECHNIQUE: One view of the chest was acquired. COMPARISON: [facility], CR, XR CHEST 1V, 08/11/2017, 12:13. FINDINGS: Surgical changes and devices: Surgical clips in the bilateral axilla and right upper quadrant of the abdomen. Lungs and pleura: Lungs are hyperinflated and hyperlucent. Small vertical opacity in the right medial lower lung. No pleural effusions or pneumothorax. Mediastinum: Mediastinal contours appear normal. Heart size is normal. Bones and chest wall: No suspicious bony lesions. Possible chronic compression fractures in the midthoracic spine. Overlying soft tissues appear unremarkable. IMPRESSION: 1. Small vertical opacity at the right medial lung base, atelectasis, scar, less likely bronchitis. 2. Findings superimposed on mild emphysema. Dictated by: Kita Murphy M.D. on 12/24/2019 at 14:48 Approved by: Kita Murphy M.D. on 12/24/2019 at 14:50
[2019-12-24 15:37] LABS: Add Manual Diff / Slide Review NO; Basophils Absolute Auto 0 /uL (0-100); Basophils Percent Auto 0.9 % (0-2); Eosinophils Absolute Auto 100 /uL (0-450); Eosinophils Percent Auto 1.2 % (2-4); Hematocrit 40.9 % (36-46); Hemoglobin 13.9 g/dL (12.0-16.0); Lymphocytes Absolute Auto 1500 /uL (1100-4500); Lymphocytes Percent Auto 28.5 % (25-40); Mean Corpuscular HGB Conc 33.9 % (30-36); Mean Corpuscular Hemoglobin 30.2 PG (26-34); Monocytes Absolute Auto 500 /uL (0-900); Monocytes Percent Auto 8.8 % (3-14); Neutrophils Absolute Auto 3200 /uL (1500-7000); Neutrophils Percent Auto 60.6 % (50-75); Platelet Count 408 X10^3/uL (150-400); Red Blood Cell Count 4.59 X10^6/uL (4.0-5.2); Red Cell Distribution Width 13.1 % (11.6-14.8); White Blood Cell Count 5.3 X10^3/uL (4.5-11.0)
[2019-12-24] MEDS: NITROGLYCERIN 0.4 MG SL TAB SL (15:37)
[2019-12-24 15:47] LABS: COVID19 -Nasal RAPID Negative (Negative)
[2019-12-24 15:47] LABS: Prothrombin Time 11.9 SECONDS (10.1-12.7)
[2019-12-24 15:50] LABS: PTT Partial Thromboplastin Tim 38 SECONDS (26.4-36.2)
[2019-12-24 15:51] LABS: Alanine Aminotransferase 21 IU/L (<35); Albumin 4.3 g/dL (3.5-5.0); Albumin Globulin Ratio 1.3 (1.0-2.8); Alkaline Phosphatase 56 U/L (38-126); Aspartate Aminotransferase 26 IU/L (14-36); BUN Creatinine Ratio 16.9 (6-22); Bilirubin Total 0.4 mg/dL (0.2-1.3); Blood Urea Nitrogen 13 mg/dL (7-17); Calcium 9.1 mg/dL (8.4-10.2); Carbon Dioxide 30 mmol/L (22-32); Chloride 99 mmol/L (98-107); Creatine Kinase 63 U/L (30-135); Estimated Glomerular Filt Rate > 60.0 mL/min (>60); Globulin 3.4 g/dL (1.7-4.1); Glucose 94 mg/dL (80-110); Lipase 161 U/L (23-300); Potassium 4.2 mmol/L (3.4-5.1); Sodium 135 mmol/L (137-145); Total Protein 7.7 g/dL (6.3-8.2)
[2019-12-24 15:53] LABS: HEMOLYSIS < 15 (0-50)
--- NOTE | 2019-12-24 15:54 | ED.CHESTPAIN ---
HPI - Chest Pain General Chief Complaint: Chest Pain Stated Complaint: Severe Pain Through Entire Body, Nausea Time Seen by Provider: 12/24/19 15:31 Source: patient Mode of arrival: Ambulatory Limitations: no limitations History of Present Illness HPI narrative: The patient is a 69-year-old female with history of breast cancer and bilateral mastectomy quite active presenting with some epigastric pain and all over body pain. 2 days ago she was working in her garden and she usually does that evening she woke up from a sleep around 2 or 3:00 a.m. with pain all over her body. Yesterday she did not feel well all day feeling nauseated she tried taking some Pepto-Bismol to help which did a little bit. She was not able to eat much. She now has significant pain in her epigastric area and into her chest. It hurts to touch. She is feeling some short of breath as well. She denies any fever or cough. MD complaint: chest pain Related Data Home Medications Medication Instructions Recorded Confirmed lorazepam 1 mg PO TID PRN 12/24/19 12/24/19 metoprolol tartrate 25 mg PO QAM 12/24/19 12/24/19 tramadol 50 mg PO Q4-6H PRN 12/24/19 12/24/19 Allergies Allergy/AdvReac Type Severity Reaction Status Date / Time morphine [MORPHINE] Allergy Severe MY BRAIN Verified 09/11/18 09:09 RECEPTORS TO ACKNOWLEDGE IT permethrin [PERMETHRIN] Allergy Severe vomiting, Verified 09/11/18 09:09 diarrhea, all over rash prednisone [PREDNISONE] Allergy Intermediate SICK TO Verified 09/11/18 09:09 STOMACH HARD TIME THINKING acetaminophen [ACETAMINOPHEN] Allergy Mild vomiting Verified 09/11/18 09:09 aspirin [ASPIRIN] Allergy Mild rectal Verified 09/11/18 09:09 bleeding clindamycin [CLINDAMYCIN] Allergy Mild Verified 09/11/18 09:09 codeine [CODEINE] Allergy Mild Verified 09/11/18 09:09 ibuprofen [IBUPROFEN] Allergy Mild vomiting Verified 09/11/18 09:09 Review of Systems Review of Systems ROS Unobtainable: All systems reviewed & are unremarkable except as noted in HPI and below Constitutional Constitutional: Reports body ache(s), Denies chills, Denies fever(s) and Reports poor appetite Eyes Eyes: Denies change in vision, Denies eye discharge, Denies irritation and Denies loss of vision ENT Ears, Nose, Mouth, and Throat: Denies change in voice, Denies neck pain and Denies sore throat Cardiovascular Cardiovascular: Reports as per HPI, Reports chest pain (Epigastric), Denies syncope, Denies dyspnea, Denies dyspnea on exertion, Denies orthopnea and Denies paroxysmal nocturnal dyspnea Respiratory Respiratory: Denies cough, Denies dyspnea, Denies dyspnea on exertion and Denies wheezing Gastrointestinal Gastrointestinal: Reports abdominal pain (Epigastric) and Reports nausea Musculoskeletal Musculoskeletal: Denies neck pain Integumentary/Breasts Skin/Breast: Denies pruritus, Denies erythema, Denies rash and Denies wounds Neurologic Neurologic: Denies syncope and Denies loss of vision Allergic/Immunologic Allergic/Immunologic: Denies wheezing Patient History Medical History HX: breast cancer (Resolved ~2005) Surgical History History of lumpectomy (~2005) Status post cholecystectomy (~1973) Social History household members: none Smoking Status: Never smoker alcohol intake: former Smoking Status: Never smoker alcohol intake frequency: other Substance Use Type: does not use Exam Initial Vital Signs Initial Vital Signs: Vital Signs Temperature 98.0 F 12/24/19 14:58 Pulse Rate 75 12/24/19 14:58 Respiratory Rate 16 12/24/19 14:58 Blood Pressure 186/99 H 12/24/19 14:58 Pulse Oximetry 99 12/24/19 14:58 GENERAL: Middle-aged female no acute distress HEENT: Head atraumatic,EOMI, pupils reactive, face symmetric, moist mucous membranes CARDIOVASCULAR: Regular rate and rhythm without murmurs, rubs or gallops. RESPIRATORY: Breath sounds equal bilaterally, no wheezes rales or rhonchi. ABDOMEN: Soft, mild epigastric pain no right upper quadrant pain some cycling pain actually EXTREMITIES: Normal range of motion, no clubbing or edema. Neurovascularly intact NEUROLOGICAL: Alert and oriented x4.Normal gait and speech. SKIN: Warm, dry, no laceration, no petechiae, no rashes or lesions. Course Orders Ordered: ED Orders 12/24/19 15:04 XR chest 1V Stat 12/24/19 15:07 EKG-12 Lead Stat 12/24/19 15:25 Complete Blood Count AUTO DIFF Stat Comprehensive Metabolic Panel Stat Lipase Stat Partial Thromboplastin Time Stat Prothrombin Time INR Stat Troponin & CK Cardiac Panel Stat 12/24/19 15:28 COVID19 -ED/INPAT/OR/L&D Stat Discontinued Medications Nitroglycerin (Nitrostat) 0.4 mg SL [id number] PRN PRN Reason: Chest Pain Last Admin: 12/24/19 15:37 Dose: 0.4 mg Documented by: FAY Pantoprazole Sodium (Protonix) 40 mg IV NOW ONE Stop: 12/24/19 15:59 Last Admin: 12/24/19 16:21 Dose: 40 mg Documented by: FAY Vital Signs Vital signs: Vital Signs - 8 hr 12/24/19 14:58 12/24/19 15:20 12/24/19 15:30 Temperature 98.0 F Pulse Rate 75 73 70 Respiratory Rate 16 23 19 Blood Pressure 186/99 H 177/103 H 166/103 H Pulse Oximetry 99 99 99 12/24/19 15:37 12/24/19 15:44 12/24/19 16:00 Temperature Pulse Rate 70 79 68 Respiratory Rate 19 22 18 Blood Pressure 160/100 H 140/100 H 152/96 H Pulse Oximetry 98 95 96 12/24/19 16:30 12/24/19 17:00 Temperature Pulse Rate 64 67 Respiratory Rate 13 14 Blood Pressure 134/91 H 155/94 H Pulse Oximetry 97 MDM - Chest Pain Lab Data Attestation: I reviewed the patient's lab results. Result diagrams: 12/24/19 15:25 12/24/19 15:25 Labs: Lab Results 12/24/19 12/24/19 12/24/19 Range/Units 15:25 15:25 15:25 WBC 5.3 (4.5-11.0) X10^3/uL RBC 4.59 (4.0-5.2) X10^6/uL Hgb 13.9 (12.0-16.0) g/dL Hct 40.9 (36-46) % MCV 89.0 (80-100) fL MCH 30.2 (26-34) PG MCHC 33.9 (30-36) % RDW 13.1 (11.6-14.8) % Plt Count 408 H (150-400) X10^3/uL Neut % (Auto) 60.6 (50-75) % Lymph % (Auto) 28.5 (25-40) % Whiteside % (Auto) 8.8 (3-14) % Eos % (Auto) 1.2 L (2-4) % Baso % (Auto) 0.9 (0-2) % Neut # (Auto) 3200 (0086-9204) /uL Lymph # (Auto) 1500 (7535-1466) /uL [place] # (Auto) 500 (0-900) /uL Eos # (Auto) 100 (0-450) /uL Baso # (Auto) 0 (0-100) /uL PT 11.9 (10.1-12.7) SECONDS INR 1.0 (0.9-1.3) APTT 38 H (26.4-36.2) SECONDS Sodium 135 L (137-145) mmol/L Potassium 4.2 (3.4-5.1) mmol/L Chloride 99 (98-107) mmol/L Carbon Dioxide 30 (22-32) mmol/L BUN 13 (7-17) mg/dL Creatinine 0.77 (0.52-1.04) mg/dL Estimated GFR > 60.0 (>60) mL/min BUN/Creatinine Ratio 16.9 (6-22) Glucose 94 (80-110) mg/dL Calcium 9.1 (8.4-10.2) mg/dL Total Bilirubin 0.4 (0.2-1.3) mg/dL AST 26 (14-36) IU/L ALT 21 (<35) IU/L Alkaline Phosphatase 56 (38-126) U/L Total Creatine Kinase 63 (30-135) U/L CK-MB (CK-2) TNP CK-MB (CK-2) Rel Index TNP Troponin I < 0.012 (0.01-0.034) ng/mL Total Protein 7.7 (6.3-8.2) g/dL Albumin 4.3 (3.5-5.0) g/dL Globulin 3.4 (1.7-4.1) g/dL Albumin/Globulin Ratio 1.3 (1.0-2.8) Lipase 161 (23-300) U/L COVID-19 PCR (Negative) 12/24/19 Range/Units 15:28 WBC (4.5-11.0) X10^3/uL RBC (4.0-5.2) X10^6/uL Hgb (12.0-16.0) g/dL Hct (36-46) % MCV (80-100) fL MCH (26-34) PG MCHC (30-36) % RDW (11.6-14.8) % Plt Count (150-400) X10^3/uL Neut % (Auto) (50-75) % Lymph % (Auto) (25-40) % Whiteside % (Auto) (3-14) % Eos % (Auto) (2-4) % Baso % (Auto) (0-2) % Neut # (Auto) (6457-7608) /uL Lymph # (Auto) (3306-6389) /uL Whiteside # (Auto) (0-900) /uL Eos # (Auto) (0-450) /uL Baso # (Auto) (0-100) /uL PT (10.1-12.7) SECONDS INR (0.9-1.3) APTT (26.4-36.2) SECONDS Sodium (137-145) mmol/L Potassium (3.4-5.1) mmol/L Chloride (98-107) mmol/L Carbon Dioxide (22-32) mmol/L BUN (7-17) mg/dL Creatinine (0.52-1.04) mg/dL Estimated GFR (>60) mL/min BUN/Creatinine Ratio (6-22) Glucose (80-110) mg/dL Calcium (8.4-10.2) mg/dL Total Bilirubin (0.2-1.3) mg/dL AST (14-36) IU/L ALT (<35) IU/L Alkaline Phosphatase (38-126) U/L Total Creatine Kinase (30-135) U/L CK-MB (CK-2) CK-MB (CK-2) Rel Index Troponin I (0.01-0.034) ng/mL Total Protein (6.3-8.2) g/dL Albumin (3.5-5.0) g/dL Globulin (1.7-4.1) g/dL Albumin/Globulin Ratio (1.0-2.8) Lipase (23-300) U/L COVID-19 PCR Negative (Negative) Imaging Data Chest x-ray: Radiologist's Impression: PROCEDURE: XR CHEST 1V INDICATIONS: chest pain TECHNIQUE: One view of the chest was acquired. COMPARISON: [facility], , XR CHEST 1V, 08/11/2017, 12:13. FINDINGS: Surgical changes and devices: Surgical clips in the bilateral axilla and right upper quadrant of the abdomen. Lungs and pleura: Lungs are hyperinflated and hyperlucent. Small vertical opacity in the right medial lower lung. No pleural effusions or pneumothorax. Mediastinum: Mediastinal contours appear normal. Heart size is normal. Bones and chest wall: No suspicious bony lesions. Possible chronic compression fractures in the midthoracic spine. Overlying soft tissues appear unremarkable. IMPRESSION: 1. Small vertical opacity at the right medial lung base, atelectasis, scar, less likely bronchitis. 2. Findings superimposed on mild emphysema. Dictated by: Kita Murphy M.D. on 12/24/2019 at 14:48 ECG Data Attestation: I personally reviewed and interpreted this ECG as follows: Prior ECG tracings: available for review Interpretation: Normal sinus rate 70 p.r. interval 140 your at [address] changes MDM Narrative Medical decision making narrative: Patient's pain is reproducible to touch been ongoing for 2 days troponin is negative blood work is overall reassuring chest x-ray does not show any acute finding. Patient cannot take Tylenol or NSAIDs she has tramadol at home. At this time no further imaging needed. This seems to likely be musculoskeletal she was working in the garden then started having reproducible pain. I discussed all findings with the patient, Education has been performed regarding treatment plan, diagnosis, warning signs and symptoms and all concerns have been addressed. Verbally agree with and understood all of the above. Discharge Plan Departure Patient Disposition: Home Clinical Impression: Atypical chest pain Discharge Date/Time: 12/24/19 17:16 Instructions: DI for Atypical Chest Pain Activity Restrictions/Additional Instructions: *You have been diagnosed with atypical chest *What to do: Your pain at this time it seems to be related to muscles. It is worse when it is palpated. Ever recommend rest ice and/;or heat *Continue to take medications as directed Tramadol please take as previously prescribed *Follow up with your primary care provider in 2-3 days *Return to ER if you should have worsening pain, increasing shortness of breath, chest or any new, worsening or concerning symptoms Prescriptions: No Action tramadol 50 mg tablet 50 mg PO Q4-6H PRN (Reason: Pain (Scale Score 7-10)) RF: 0 lorazepam 1 mg tablet 1 mg PO TID PRN (Reason: Anxiety) RF: 0 metoprolol tartrate 25 mg tablet 25 mg PO QAM RF: 0 Referrals: Lei Rasmussen MD [Primary Care Provider] -
[2019-12-24 16:03] LABS: Troponin I < 0.012 ng/mL (0.01-0.034)
[2019-12-24] MEDS: PANTOPRAZOLE 40 MG VIAL IV (16:21)
== END 2019-12-24 17:16 | disposition home or self-care (01) ==
PROVIDERS: Emergency Provider Emergency Medicine; PCP Family Medicine
DX: R07.89 Other chest pain (principal); R10.13 Epigastric pain; R11.0 Nausea
CPT/HCPCS: 36415; 71045; 80053; 82550; 83690; 84484; 85025; 85610; 85730; 87635; 93005; 93010; 96374; 99284; C9113

== ENCOUNTER → 2020-05-02 09:56 | Outpatient (CLI) | payer MEDICARE, SELFPAY ==
[2020-05-02] MEDS: COVID-19 VACC #1, MRNA(MOD) 100 MCG/0.5 ML VIAL IM (10:23)
== END ==
PROVIDERS: PCP Family Medicine; Visit Provider Internal Medicine
DX: Z23 Encounter for immunization (principal)
CPT/HCPCS: 0011A; 91301

== ENCOUNTER → 2020-05-30 08:27 | Outpatient (CLI) | payer MEDICARE, SELFPAY ==
[2020-05-30] MEDS: COVID-19 VACC #2, MRNA(MOD) 100 MCG/0.5 ML VIAL IM (08:31)
== END ==
PROVIDERS: PCP Family Medicine; Visit Provider Internal Medicine
DX: Z23 Encounter for immunization (principal)
CPT/HCPCS: 0012A; 91301

== ENCOUNTER → 2020-07-01 08:11 | Outpatient (CLI) | payer MEDICARE, SELFPAY ==
[2020-07-01 09:27] LABS: Cholesterol 217 mg/dL (140-199); HDL Cholesterol 100 mg/dL (40-60); LDL Cholesterol Calculated 101 mg/dL (<100); Triglycerides 82 mg/dL (35-150)
== END ==
PROVIDERS: PCP Family Medicine; Referring Provider Family Medicine; Visit Provider Family Medicine
DX: E78.5 Hyperlipidemia, unspecified (principal)
CPT/HCPCS: 36415; 80061

== ENCOUNTER → 2021-02-13 08:48 | Outpatient (CLI) | payer MEDICARE, SELFPAY ==
[2021-02-13] MEDS: COVID-19 VACC #3, MRNA(MOD) 50 MCG/0.25 ML VIAL IM (08:52)
== END ==
PROVIDERS: PCP Family Medicine; Visit Provider Internal Medicine
DX: Z23 Encounter for immunization (principal)
CPT/HCPCS: 0013A; 91301

== ENCOUNTER → 2021-07-09 10:02 | Outpatient (CLI) | payer MEDICARE, SELFPAY ==
[2021-07-09 11:38] LABS: Alanine Aminotransferase 29 IU/L (<35); Albumin 4.5 g/dL (3.5-5.0); Albumin Globulin Ratio 1.6 (1.0-2.8); Alkaline Phosphatase 40 U/L (38-126); Aspartate Aminotransferase 33 IU/L (14-36); BUN Creatinine Ratio 19.1 (6-22); Bilirubin Total 0.8 mg/dL (0.2-1.3); Blood Urea Nitrogen 18 mg/dL (7-17); Calcium 8.9 mg/dL (8.4-10.2); Carbon Dioxide 30 mmol/L (22-32); Chloride 100 mmol/L (98-107); Globulin 2.8 g/dL (1.7-4.1); Glucose 94 mg/dL (80-110); HEMOLYSIS < 15 (0-50); Potassium 4.2 mmol/L (3.4-5.1); Sodium 138 mmol/L (137-145); Total Protein 7.3 g/dL (6.3-8.2)
--- NOTE | 2021-07-09 12:08 | DI.CT.S_ITS ---
PROCEDURE: CT CHEST ABD PEL W CON INDICATIONS: Chest and abdominal pain, history of breast cancer. TECHNIQUE: After the administration of oral and intravenous contrast, axial sections acquired from the supraclavicular neck to the pubic symphysis. Coronal and sagittal reformats were performed. For radiation dose reduction, the following was used: automated exposure control, adjustment of mA and/or kV according to patient size. COMPARISON:[facility], CT, CT CHEST ABD PEL W CON, 09/16/2017, 13:48. US, US PELVIC COMPLETE, 04/27/2019, 11:00. [facility], CT, CT ABDOMEN PELVIS W CON, 04/10/2019, 7:23. FINDINGS: Image quality: Excellent. CHEST: Lower Neck: No enlarged lymph nodes. Thyroid: Within normal limits. Axillae: No enlarged lymph nodes. Chest Wall: Unremarkable. Lungs and Airways: Small pulmonary nodules are present bilaterally, not definitively seen on the prior examination in 2018. Reference nodules are listed in the following: Nodule 1: 2 mm; right lower lobe; series 5, image 179; solid. Nodule 2: 3 mm; right upper lobe; series 5 image 82; solid. Nodule 3: 4 mm; right upper lobe lateral; series 5, image 67; ground-glass. Nodule 4: 3 mm; right minor fissure; series 5, image 136; solid. Nodule 5: 2 mm; left lower lobe; series 5 image 233; solid. Subpleural scars are seen in right middle lobe, lingula, and right lower lobe. Pleura: No pneumothorax or pleural effusions. Heart: Heart size is normal. No pericardial effusion. Thoracic Vessels: The aorta and pulmonary arteries demonstrate normal size. Mediastinum and [place]: No enlarged lymph nodes. Esophagus: No wall thickening. Small hiatal hernia. ABDOMEN: Liver: Unremarkable. Gallbladder: Surgically removed. Biliary ducts: Unremarkable. Pancreas: Unremarkable. Spleen: Unremarkable. Adrenal Glands: Unremarkable. Kidneys and Ureters: Unremarkable. Stomach and Bowel: Stomach, small bowel loops, and colon are unremarkable. There is a moderate amount of stool in colon. Peritoneum: No abnormal intraperitoneal fluid. No free air. Ventral Wall: No hernia. Abdominal Nodes: No retroperitoneal or mesenteric adenopathy by size criteria. Vessels: Aorta and inferior vena cava are normal in size. Prominent gonadal veins in pelvis suggest pelvic congestion syndrome. PELVIS: Pelvic Organs: Unremarkable. Bladder: Unremarkable. Pelvic Nodes: No enlarged lymph nodes. Miscellaneous: No inguinal hernias are seen. Bones: Moderate chronic compression fracture of T7 and T8 and mild chronic compression fracture of L5. IMPRESSION: 1. No definitive metastatic disease is identified on CT. 2. Small pulmonary nodules are seen, most likely infectious or inflammatory etiology even though the nodules are not well seen on the prior examination in 2018. Follow-up imaging is suggested in 6-12 months. 3. Enlarged gonadal veins bilaterally suggesting pelvic congestion syndrome. 4. No lymphadenopathy in thorax, abdomen or pelvis. 5. Chronic compression fracture of T 7, T8 and L5. Dictated by: Daxa Dodge M.D. on 07/09/2021 at 15:21 Approved by: Daxa Dodge M.D. on 07/09/2021 at 15:35
== END ==
PROVIDERS: PCP Family Medicine; Referring Provider Surgery; Visit Provider Surgery
DX: R10.33 Periumbilical pain (principal); R07.81 Pleurodynia; R91.8 Other nonspecific abnormal finding of lung field; M48.55XA Collapsed vertebra, not elsewhere classified, thoracolumbar region, initial encounter for fracture; I87.8 Other specified disorders of veins; Z85.3 Personal history of malignant neoplasm of breast
CPT/HCPCS: 36415; 71260; 74177; 80053

== ENCOUNTER → 2021-12-08 08:28 | Outpatient (CLI) | payer MEDICARE, SELFPAY ==
[2021-12-08 09:51] LABS: Add Manual Diff / Slide Review NO; Basophils Absolute Auto 100 /uL (0-100); Basophils Percent Auto 1.4 % (0-2); Eosinophils Absolute Auto 200 /uL (0-450); Eosinophils Percent Auto 3.5 % (2-4); Hematocrit 42.6 % (36-46); Hemoglobin 14.3 g/dL (12.0-16.0); Lymphocytes Absolute Auto 1200 /uL (1100-4500); Lymphocytes Percent Auto 25.9 % (25-40); Mean Corpuscular HGB Conc 33.5 % (30-36); Mean Corpuscular Hemoglobin 29.6 PG (26-34); Mean Corpuscular Volume 88.4 fL (80-100); Monocytes Absolute Auto 500 /uL (0-900); Monocytes Percent Auto 10.3 % (3-14); Neutrophils Absolute Auto 2800 /uL (1500-7000); Neutrophils Percent Auto 58.9 % (50-75); Platelet Count 267 X10^3/uL (150-400); Red Blood Cell Count 4.82 X10^6/uL (4.0-5.2); Red Cell Distribution Width 14.4 % (11.6-14.8); White Blood Cell Count 4.7 X10^3/uL (4.5-11.0)
[2021-12-08 11:04] LABS: Alanine Aminotransferase 28 IU/L (<35); Albumin 4.4 g/dL (3.5-5.0); Albumin Globulin Ratio 1.4 (1.0-2.8); Alkaline Phosphatase 50 U/L (38-126); Aspartate Aminotransferase 32 IU/L (14-36); Bilirubin Total 0.8 mg/dL (0.2-1.3); Blood Urea Nitrogen 16 mg/dL (7-17); Calcium 8.8 mg/dL (8.4-10.2); Carbon Dioxide 30 mmol/L (22-32); Chloride 100 mmol/L (98-107); Cholesterol 213 mg/dL (140-199); Estimated Glomerular Filt Rate > 60 mL/min (>60); Globulin 3.1 g/dL (1.7-4.1); Glucose 90 mg/dL (80-110); HDL Cholesterol 94 mg/dL (40-60); HEMOLYSIS < 15 (0-50); LDL Cholesterol Calculated 106 mg/dL (<100); Potassium 3.9 mmol/L (3.4-5.1); Sodium 137 mmol/L (137-145); Total Protein 7.5 g/dL (6.3-8.2); Triglycerides 66 mg/dL (35-150)
[2021-12-08 11:06] LABS: Creatinine Urine Random 19.4 mg/dL
[2021-12-08 11:12] LABS: Microalbumin Urine Random < 0.6 mg/dL (0-1.6)
== END ==
PROVIDERS: PCP Family Medicine; Referring Provider Family Medicine; Visit Provider Family Medicine
DX: E78.2 Mixed hyperlipidemia (principal); F41.9 Anxiety disorder, unspecified; I10 Essential (primary) hypertension; Z90.13 Acquired absence of bilateral breasts and nipples
CPT/HCPCS: 36415; 80053; 80061; 82043; 82570; 85025

== ENCOUNTER 2022-06-21 13:54 | Emergency (ER) | payer MEDICARE, SELFPAY ==
[2022-06-21 14:13] VITALS: BP 188/114; PULSE 71; RESP 17; TEMP 36.6; O2SAT 98
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
--- NOTE | 2022-06-21 14:19 | DI.CT.S_ITS ---
PROCEDURE: CT ABDOMEN PELVIS W CON INDICATIONS: lower abd pain withblack stool TECHNIQUE: After the administration of oral and IV contrast, axial sections were acquired from the lung bases to the pubic symphysis. Coronal and sagittal reformats were performed. For radiation dose reduction, the following was used: automated exposure control, adjustment of mA and/or kV according to patient size. COMPARISON: [facility], CT, CT CHEST ABD PEL W CON, 07/09/2021, 12:17. [facility], CT, CT ABDOMEN PELVIS W CON, 04/10/2019, 7:23. FINDINGS: Image quality: Excellent. Lung bases: Small cluster nodularity is noted in the right middle lobe. This appears more prominent when compared to prior exam. Heart: No significant findings. ABDOMEN: Liver: Unremarkable. Gallbladder: Gallbladder has been removed. Biliary ducts: Unremarkable. Pancreas: Unremarkable. Spleen: Unremarkable. Adrenal Glands: Unremarkable. Kidneys and Ureters: Unremarkable. Stomach and Bowel: Stomach, small bowel loops, and colon are unremarkable. Peritoneum: No abnormal intraperitoneal fluid. No free air. Ventral Wall: No hernia. Abdominal Nodes: No retroperitoneal or mesenteric adenopathy by size criteria. Vessels: Aorta and inferior vena cava are normal in size. PELVIS: Pelvic Organs: Visualized uterus is unremarkable. There is increased vascularity within the lower pelvis. Bladder: Unremarkable. Pelvic Nodes: No enlarged lymph nodes. Miscellaneous: No inguinal hernias are seen. Bones: Unremarkable. IMPRESSION: No acute intra-abdominal or pelvic process. Increased vascularity within the pelvis which can be seen with pelvic congestion syndrome. Clinical correlation is recommended. Small cluster of nodules within the right middle lobe overall nonspecific but suggestive of infection/inflammation including atypical etiology such as fungal or mycobacterial. Recommend interval follow-up to document resolution after appropriate therapy. Dictated by: Blanca Tracey M.D. on 06/21/2022 at 15:44 Approved by: Blanca Tracey M.D. on 06/21/2022 at 15:52
[2022-06-21 14:31] VITALS: BP 204/103; PULSE 68; O2SAT 97
[2022-06-21 14:33] VITALS: BP 173/110; PULSE 67; O2SAT 98
[2022-06-21 14:40] LABS: Add Manual Diff / Slide Review NO; Basophils Absolute Auto 0 /uL (0-100); Basophils Percent Auto 0.6 % (0-2); Eosinophils Absolute Auto 0 /uL (0-450); Eosinophils Percent Auto 0.4 % (2-4); Hemoglobin 14.4 g/dL (12.0-16.0); Lymphocytes Absolute Auto 1200 /uL (1100-4500); Lymphocytes Percent Auto 21.7 % (25-40); Mean Corpuscular HGB Conc 32.8 % (30-36); Mean Corpuscular Hemoglobin 29.6 PG (26-34); Mean Corpuscular Volume 90.3 fL (80-100); Monocytes Absolute Auto 400 /uL (0-900); Monocytes Percent Auto 6.9 % (3-14); Neutrophils Absolute Auto 3800 /uL (1500-7000); Neutrophils Percent Auto 70.4 % (50-75); Platelet Count 244 X10^3/uL (150-400); Red Blood Cell Count 4.88 X10^6/uL (4.0-5.2); Red Cell Distribution Width 13.4 % (11.6-14.8); White Blood Cell Count 5.3 X10^3/uL (4.5-11.0)
[2022-06-21] MEDS: PANTOPRAZOLE 40 MG VIAL IV (14:46)
[2022-06-21 14:52] LABS: Alanine Aminotransferase 25 IU/L (<35); Albumin 4.4 g/dL (3.5-5.0); Albumin Globulin Ratio 1.5 (1.0-2.8); Alkaline Phosphatase 51 U/L (38-126); Aspartate Aminotransferase 28 IU/L (14-36); BUN Creatinine Ratio 20.8 (6-22); Bilirubin Total 0.6 mg/dL (0.2-1.3); Blood Urea Nitrogen 16 mg/dL (7-17); Calcium 8.8 mg/dL (8.4-10.2); Carbon Dioxide 27 mmol/L (22-32); Chloride 101 mmol/L (98-107); Estimated Glomerular Filt Rate > 60 mL/min (>60); Glucose 109 mg/dL (80-110); HEMOLYSIS < 15 (0-50); Lipase 86 U/L (23-300); Potassium 3.9 mmol/L (3.4-5.1); Sodium 135 mmol/L (137-145); Total Protein 7.4 g/dL (6.3-8.2)
[2022-06-21 15:43] VITALS: BP 157/92; PULSE 65; O2SAT 97
== END 2022-06-21 16:27 | disposition home or self-care (01) ==
PROVIDERS: Emergency Provider Emergency Medicine; PCP Family Medicine
DX: R10.9 Unspecified abdominal pain (principal); R91.1 Solitary pulmonary nodule
CPT/HCPCS: 36415; 74177; 80053; 81003; 83690; 85025; 96374; 99284; C9113; Q9967

== ENCOUNTER → 2022-07-05 12:16 | Outpatient (CLI) | payer MEDICARE, SELFPAY ==
--- NOTE | 2022-07-05 12:17 | DI.CT.S_ITS ---
PROCEDURE: CT HEAD/BRAIN WO CON INDICATIONS: head pain TECHNIQUE: Noncontrast 4.5 mm thick angled axial sections acquired from the foramen magnum to the vertex, with coronal and sagittal reformats. For radiation dose reduction, the following was used: automated exposure control, adjustment of mA and/or kV according to patient size. COMPARISON: [facility], CT, CT HEAD/BRAIN WO CON, 08/11/2017, 12:29. FINDINGS: Image quality: Excellent. CSF spaces: Basal cisterns are patent. No extra-axial fluid collections. The ventricles are symmetric in size and shape. Brain: No intracranial bleeds or masses. There is cerebral volume loss for age, with resultant ventricular and sulcal prominence. There are periventricular and deep white matter chronic small vessel ischemic changes. There is intracranial internal carotid artery atherosclerosis. Senescent basal ganglia calcifications are present. Skull and face: Calvarium and visualized facial bones appear intact, without suspicious lesions. Sinuses: Visualized sinuses and mastoids are clear. IMPRESSION: 1. No acute intracranial process. 2. Mild to moderate atrophy and chronic microvascular ischemic changes. Dictated by: Blanca Tracey M.D. on 07/05/2022 at 13:37 Approved by: Blanca Tracey M.D. on 07/05/2022 at 13:38
== END ==
PROVIDERS: PCP Family Medicine; Referring Provider Surgery; Visit Provider Surgery
DX: S09.90XA Unspecified injury of head, initial encounter (principal); I65.29 Occlusion and stenosis of unspecified carotid artery; R10.32 Left lower quadrant pain; X58.XXXA Exposure to other specified factors, initial encounter
CPT/HCPCS: 70450; 99213

== ENCOUNTER → 2022-07-20 13:26 | Outpatient (CLI) | payer MEDICARE, SELFPAY ==
[2022-07-20 14:02] LABS: Alanine Aminotransferase 28 IU/L (<35); Albumin 4.3 g/dL (3.5-5.0); Albumin Globulin Ratio 1.5 (1.0-2.8); Alkaline Phosphatase 51 U/L (38-126); Aspartate Aminotransferase 28 IU/L (14-36); BUN Creatinine Ratio 24.4 (6-22); Bilirubin Total 0.6 mg/dL (0.2-1.3); Blood Urea Nitrogen 21 mg/dL (7-17); Calcium 9.2 mg/dL (8.4-10.2); Carbon Dioxide 32 mmol/L (22-32); Chloride 100 mmol/L (98-107); Estimated Glomerular Filt Rate > 60 mL/min (>60); Globulin 2.9 g/dL (1.7-4.1); Glucose 100 mg/dL (80-110); HEMOLYSIS < 15 (0-50); Potassium 4.1 mmol/L (3.4-5.1); Sodium 137 mmol/L (137-145); Total Protein 7.2 g/dL (6.3-8.2)
[2022-07-20 14:25] LABS: Appearance Urine UA CLEAR; Bilirubin Urine UA NEGATIVE (NEGATIVE); Color Urine UA YELLOW; Glucose Urine UA NEGATIVE (Negative); Ketones Urine UA NEGATIVE (NEGATIVE); Leukocyte Esterase Urine UA NEGATIVE (NEGATIVE); Nitrite Urine UA NEGATIVE (Negative); Occult Blood Urine UA TRACE-INTACT (Negative); Protein Urine UA NEGATIVE (Negative); Specific Gravity Urine UA <=1.005 (1.000-1.035); Urobilinogen Urine UA 0.2 E.U./dL (0.2)
[2022-07-20 14:34] LABS: Bacteria Urine None Seen; Culture Indicated Urine Cult Not Indicated; RBC Urine None Seen (0-5/HPF); WBC Urine None Seen (0-5/HPF)
== END ==
PROVIDERS: PCP Family Medicine; Referring Provider Family Medicine; Visit Provider Family Medicine
DX: R91.8 Other nonspecific abnormal finding of lung field (principal); I10 Essential (primary) hypertension; Z85.3 Personal history of malignant neoplasm of breast; Z90.13 Acquired absence of bilateral breasts and nipples
CPT/HCPCS: 36415; 80053; 81001

== ENCOUNTER → 2022-07-20 13:38 | Outpatient (CLI) | payer MEDICARE, SELFPAY ==
--- NOTE | 2022-07-20 13:40 | DI.CT.S_ITS ---
PROCEDURE: CT CHEST WO CON INDICATIONS: lung nodules, hx of breast CA TECHNIQUE: Noncontrast 5 mm thick sections acquired from the pulmonary apices to the posterior costophrenic angles. 1 mm lung window, 5 mm thick coronal and sagittal and 7 mm axial MIP reformats were then acquired. For radiation dose reduction, the following was used: automated exposure control, adjustment of mA and/or kV according to patient size. COMPARISON: [facility], CT, CT CHEST ABD PEL W CON, 07/09/2021, 12:17. FINDINGS: Lungs and pleura: No consolidation or pleural effusion. Patchy areas of centrilobular micronodularity are present, likely infectious/inflammatory, for example at the inferior aspect of the right upper lobe. This appears new or increased since the prior exam. Bronchiectasis at the inferior right upper lobe is also new/increased. Multiple foci of peripheral airways mucous plugging are present. Scattered ground-glass nodules are present which are new/increased since before. Previously indexed 4 millimeter right upper lobe ground-glass nodule is no longer visualized, likely resolved. Mediastinum: No pericardial effusion. Thoracic aorta and central pulmonary arteries are normal in size. Esophagus is normal in caliber. Bones and chest wall: Multilevel degenerative change of the visualized spine. No axillary or supraclavicular adenopathy by size criteria. Bilateral mastectomy. Thoracic vertebral body compression deformities appears similar to before Abdomen: Visualized upper abdominal solid organs and bowel loops appear unremarkable in the absence of contrast. IMPRESSION: Multiple solid and ground-glass nodules are present with an overall increase in micronodularity since before, however some previously indexed nodules are no longer visualized. Overall findings may be infectious/inflammatory, metastatic disease is difficult to fully exclude. Attention on follow-up is recommended. Dictated by: Nolan Carreon M.D. on 07/20/2022 at 14:40 Approved by: Nolan Carreon M.D. on 07/20/2022 at 14:56
== END ==
PROVIDERS: PCP Family Medicine; Referring Provider Family Medicine; Visit Provider Family Medicine
DX: R91.8 Other nonspecific abnormal finding of lung field (principal); Z85.3 Personal history of malignant neoplasm of breast; Z90.13 Acquired absence of bilateral breasts and nipples; I10 Essential (primary) hypertension
CPT/HCPCS: 36415; 71250; 80053; 81001

== ENCOUNTER 2022-08-05 11:38 | Day surgery (SDC) | payer MEDICARE, SELFPAY ==
--- NOTE | 2022-08-05 | PATH_ITS ---
[facility] Accession Number: [id number] No. of containers..01 Tissue . 01 Material submitted: . ANTRUM - ANTRUM BIOPSIES . 01 Diagnosis: Antrum, Biopsies: Gastric antral mucosa with mild chronic inflammation. Negative for Helicobacter organisms by immunohistochemistry. Negative for intestinal metaplasia. Negative for dysplasia or malignancy. [facility] 08/11/2022 1443 Local . 01 Electronically signed: . Claudy Leonardo MD, PhD, Pathologist NPI- [id number] . 01 Gross description: . The specimen is received in formalin labeled with the patient's name, , and antrum biopsies, and consists of three tucker soft tissue fragments ranging from 0.2 cm to 0.4 cm in greatest dimension. Submitted entirely in cassette A1. ([id number]) /[facility] 08/07/2022 1655 Local . 01 Microscopic: . An immunohistochemical stain was performed to evaluate for Helicobacter organisms and is negative. The control stain showed appropriate reactivity. . * This test was developed and its performance characteristics determined by [facility]. It has not been cleared or approved by the U.S. Food and Drug Administration. The FDA has determined that such clearance or approval is not necessary. This test is used for clinical purposes. It should not be regarded as investigational or for research. . 01 Pathologist provided ICD-10: K29.70 . 01 CPT . 355609, [id number] Specimen Comment: A courtesy copy of this report has been sent to [phone] Performed at: 01 [facility] [address] [place] [address] [address] [facility], [place], [place] [id number] MD Mark Jha MD Phone: [phone]
[2022-08-05] MEDS: LACTATED RINGERS 1,000 ML 42 ML IV (13:36)
[2022-08-05 13:54] VITALS: BP 167/99; PULSE 71; RESP 16; TEMP 37.2; O2SAT 98; BMI 19.3
--- NOTE | 2022-08-05 14:26 | PM.HP.1 ---
History of Present Illness History of Present Illness Date Patient Seen: 08/05/22 Time Patient Seen: 14:26 [place] [facility] [place]ative: Anitha is here for her EGD. She denies any recent melena or hematochezia. See office note from July for details. [facility] Medical History (Updated 07/20/22 @ 15:53 by Mode Lopez MD) Bronchiectasis Chronic pain HX: breast cancer (~2005) Primary invasive malignant neoplasm of left female breast Surgical History History of lumpectomy (~2005) Status post cholecystectomy (~1973) Social History household members: family Smoking Status: Never smoker alcohol intake: former Meds Home Medications and Allergies Home Medications Medication Instructions Recorded Confirmed Type metoprolol succinate 25 mg See Rx Instructions .Route 11/17/21 08/05/22 Rx tablet,extended release 24 hr .COMPLEX #90 tabs lorazepam 1 mg tablet See Rx Instructions .Route 07/13/22 08/05/22 Rx .COMPLEX #120 tabs Allergies Allergy/AdvReac Type Severity Reaction Status Date / Time morphine [MORPHINE] Allergy Severe MY BRAIN Verified 08/05/22 13:39 RECEPTORS TO ACKNOWLEDGE IT permethrin [PERMETHRIN] Allergy Severe vomiting, Verified 08/05/22 13:39 diarrhea, all over rash clindamycin [CLINDAMYCIN] Allergy Mild Verified 08/05/22 13:39 codeine [CODEINE] Allergy Mild Verified 08/05/22 13:39 prednisone [PREDNISONE] AdvReac Intermediate SICK TO Verified 08/05/22 13:39 STOMACH HARD TIME THINKING acetaminophen [ACETAMINOPHEN] AdvReac Mild vomiting Verified 08/05/22 13:39 aspirin [ASPIRIN] AdvReac Mild rectal Verified 08/05/22 13:39 bleeding ibuprofen [IBUPROFEN] AdvReac Mild vomiting Verified 08/05/22 13:39 Exam Vital Signs (past 8 hours): - 08/05/22 13:54 Temperature 98.9 F Pulse Rate 71 Respiratory Rate 16 Blood Pressure 167/99 H Pulse Oximetry 98 Oxygen Delivery Method Room Air Oxygen Delivery Method Room Air Const General: No acute distress Assessment & Plan Assessment and plan (1) Abdominal pain, generalized: Status: Acute Plan Proceed with EGD to rule out ulcers or other upper GI pathology.
[2022-08-05] MEDS: LIDOCAINE VISCOUS 2% 15 ML SOLUTION PO (15:24)
--- NOTE | 2022-08-05 15:29 | PM.OP.EGD ---
Operative Date/Time/Diagnoses Date of procedure: 08/05/22 Time of procedure: 15:30 Pre-op diagnosis: Melena Post-op diagnosis: same Procedure & Clinicians Study performed: Esophagogastroduodenoscopy Same procedure as scheduled: Yes Surgeon: Oswald Gatica Procedure Notes Procedure in detail: Surgeon: Oswald Gatica MD Anesthesia: Priscilla Witt CRNA A timeout was performed. A bite blocked was placed. The patient was positioned in the left lateral decubitus position. Anesthesia was administered. The endoscope was inserted through the bite block and passed through the esophagus and stomach and into the duodenum. The duodenal mucosa appeared normal. The scope was withdrawn into the duodenal bulb and no abnormalities were seen. The scope was withdrawn into the stomach. There was antritis and several small shallow ulcers in the antrum. Random biopsies were taken from the antrum. The rest of the stomach was normal. The scope was retroflexed and no hiatal hernia was seen. The scope was withdrawn into the esophagus and no abnormalities were seen. The remainder of the esophagus was normal. The scope was withdrawn. The patient was awakened and brought to recovery. Sedation time: 7 minutes Findings: Antritis and small, shallow antral ulcers Post-procedure Disposition: PACU
[2022-08-05 15:33] VITALS: BP 139/85; PULSE 63; RESP 16; TEMP 36.6; O2SAT 95
[2022-08-05 15:40] VITALS: BP 137/93; PULSE 66; RESP 17; TEMP 36.6; O2SAT 99
[2022-08-05 15:46] VITALS: BP 168/96; PULSE 66; RESP 15; TEMP 36.4; O2SAT 99
[2022-08-05 16:00] VITALS: BP 180/98; PULSE 70; RESP 16; TEMP 36.7; O2SAT 98
== END 2022-08-05 16:18 | disposition home or self-care (01) ==
PROVIDERS: PCP Family Medicine; Referring Provider Surgery; Visit Provider Surgery
PROC: 0DJ08ZZ Inspection of Upper Intestinal Tract, Via Natural or Artificial Opening Endoscopic (ICD-10-PCS; CPT 43235; principal; 2022-08-05 13:45)
DX: K92.1 Melena (principal); R10.84 Generalized abdominal pain
CPT/HCPCS: 43235; J2704

== ENCOUNTER → 2022-09-09 10:13 | Outpatient (CLI) | payer MEDICARE, SELFPAY ==
--- NOTE | 2022-09-09 10:14 | DI.RAD.S_ITS ---
PROCEDURE: XR HIP W PEL IF DONE LT 2V INDICATIONS: low back pain and left hip pain after fall TECHNIQUE: 2 views of the hip were acquired. COMPARISON: None. FINDINGS: Bones: No fractures or dislocations. No suspicious bony lesions. The visualized pelvic ring appears intact. Soft tissues: No suspicious soft tissue calcifications or masses. IMPRESSION: Unremarkable left hip radiographs. No fracture or dislocation. Approved by: Vic Laureano M.D. on 09/09/2022 at 12:47
--- NOTE | 2022-09-09 10:14 | DI.RAD.S_ITS ---
PROCEDURE: XR LUMBAR SPINE MIN 4V INDICATIONS: low back pain and left hip pain after fall TECHNIQUE: 5 views of the lumbar spine were acquired, including bilateral oblique views. COMPARISON: [facility], , L-SPINE 2-3 VIEWS, 05/18/2017, 10:57. FINDINGS: Bones: Generalized decreased osseous mineralization present. There is mild less than 10% anterior height loss noted at L2 and L5 without retropulsed fracture fragment. The L2 fracture is new from the prior exam 2018. Sclerotic facet joints noted in the lower lumbar spine. Soft tissues: Overlying bowel gas pattern is normal. No suspicious soft tissue calcifications. Surgical clips noted right paraspinal Oblique images: No pars defects. IMPRESSION: L2 compression fracture is new from the prior exam 2018. If vertebroplasty is considered, consider follow-up MR evaluation. Old unchanged L5 compression fracture. Lower lumbar spine arthropathy Approved by: Vic Laureano M.D. on 09/09/2022 at 13:43
--- NOTE | 2022-09-09 10:14 | DI.RAD.S_ITS ---
PROCEDURE: XR SACRUM COCCYX MIN 2V INDICATIONS: tailbone pain after fall TECHNIQUE: 3 views of the sacrum and coccyx acquired. COMPARISON: None. FINDINGS: Bones: No fractures or dislocations. No suspicious bony lesions. Generalized decreased osseous mineralization noted. Soft tissues: Visualized bowel gas pattern is normal. No suspicious soft tissue densities. IMPRESSION: Osteopenia without fracture or foreign body Approved by: Vic Laureano M.D. on 09/09/2022 at 13:36
== END ==
PROVIDERS: PCP Family Medicine; Referring Provider Family Medicine; Visit Provider Family Medicine
DX: M47.816 Spondylosis without myelopathy or radiculopathy, lumbar region (principal); M48.56XA Collapsed vertebra, not elsewhere classified, lumbar region, initial encounter for fracture; M85.88 Other specified disorders of bone density and structure, other site; M53.3 Sacrococcygeal disorders, not elsewhere classified; M25.552 Pain in left hip; M54.50 Low back pain, unspecified
CPT/HCPCS: 72110; 72220; 73502

== ENCOUNTER → 2022-09-14 15:51 | Outpatient (CLI) | payer MEDICARE, SELFPAY ==
--- NOTE | 2022-09-14 15:53 | DI.MRI.S_ITS ---
PROCEDURE: MR LUMBAR SPINE WO CON INDICATIONS: Lumbar Compression Fracture TECHNIQUE: Noncontrast sagittal T1 spin echo and T2 fast echo, sagittal STIR, and T2 fast spin echo through the lumbar spine. In cases with scoliosis, additional coronal T2 fast spin echo may be performed. COMPARISON: [facility], CR, XR LUMBAR SPINE MIN 4V, 09/09/2022, 10:12. FINDINGS: Image quality: Excellent. Alignment and Curvature: There is normal bony alignment. Bone Marrow: Marrow is of normal overall signal. Mild wedging of L2 which demonstrates linear low T2 signal intensity within its superior aspect with moderate surrounding ill-defined T2 signal elevation. Spinal Cord: Conus medullaris terminates at the L1-L2 disc space level. Visualized cord demonstrates normal signal and size. Paraspinous Soft Tissues: No paravertebral masses. T12-L1: Disc desiccation. No significant canal nor foraminal stenosis. L1-L2: Disc desiccation. No significant canal nor foraminal stenosis. L2-L3: Disc desiccation. No significant canal nor foraminal stenosis. L3-L4: Disc desiccation. Mild facet and ligamentum flavum hypertrophy. No significant canal stenosis. Mild bilateral foraminal stenosis L4-L5: Mild disc desiccation and diffuse disc bulge. Mild canal stenosis. Mild bilateral foraminal stenosis. L5-S1: Mild disc desiccation and diffuse disc bulge. Mild canal stenosis. Mild bilateral foraminal stenosis. IMPRESSION: Mild subacute L2 compression fracture. Dictated by: Jayna Hunter M.D. on 09/14/2022 at 16:58 Approved by: Jayna Hunter M.D. on 09/14/2022 at 17:00
== END ==
PROVIDERS: PCP Family Medicine; Referring Provider Family Medicine; Visit Provider Family Medicine
DX: S32.020A Wedge compression fracture of second lumbar vertebra, initial encounter for closed fracture (principal); S32.050A Wedge compression fracture of fifth lumbar vertebra, initial encounter for closed fracture; M51.36 Other intervertebral disc degeneration, lumbar region; M51.37 Other intervertebral disc degeneration, lumbosacral region; M48.061 Spinal stenosis, lumbar region without neurogenic claudication; M48.07 Spinal stenosis, lumbosacral region; M47.816 Spondylosis without myelopathy or radiculopathy, lumbar region
CPT/HCPCS: 72148

== ENCOUNTER → 2023-03-08 12:07 | Outpatient (CLI) | payer MEDICARE, SELFPAY ==
[2023-03-08 12:39] LABS: Estimated Glomerular Filt Rate > 60 mL/min (>60)
--- NOTE | 2023-03-08 13:23 | DI.CT.S_ITS ---
PROCEDURE: CT CHEST ABD PEL W CON INDICATIONS: interval f/u on lung nodules, chronic lower abdominal pain TECHNIQUE: After the administration of oral and intravenous contrast, axial sections acquired from the supraclavicular neck to the pubic symphysis. Coronal and sagittal reformats were performed. For radiation dose reduction, the following was used: automated exposure control, adjustment of mA and/or kV according to patient size. COMPARISON: [facility], CT, CT CHEST ABD PEL W CON, 07/09/2021, 12:17. FINDINGS: Image quality: Excellent. CHEST: Lower Neck: No enlarged lymph nodes. Thyroid: No thyroid nodules which require sonographic follow up, per consensus guidelines. Axillae: No enlarged lymph nodes. Surgical clips in the bilateral adnexae. Chest Wall: Bilateral mastectomy. Lungs and Airways: Compared to CT dated July 09, 2021, new centrilobular nodules in the right upper lobe (3/94). Similar centrilobular nodules in the apical segment of the right lower lobe (3/228). Linear atelectasis in the middle lobe with traction bronchiectasis, increased compared to prior. Previously described pulmonary nodules are stable, some of which appear calcified (for example, 3/135, 143, 2/44). Scattered areas of distal bronchial mucous plugging. Patent central airways. Pleura: No pneumothorax or pleural effusions. Heart: Heart size is normal. No pericardial effusion. Thoracic Vessels: The aorta and pulmonary arteries demonstrate normal size. No filling defects in the central pulmonary vasculature. Mediastinum and [place]: No enlarged lymph nodes. Esophagus: No wall thickening. No hiatal hernia. ABDOMEN: Liver: No solid mass. Gallbladder: Cholecystectomy. Biliary ducts: No biliary dilation. Pancreas: No ductal dilation. Spleen: Size is within normal limits. Adrenal Glands: No adrenal nodules. Kidneys and Ureters: No hydronephrosis. No solid mass. No complex renal cystic lesion which requires follow up. Stomach and Bowel: Stomach appears grossly normal. Small and large bowel is normal in caliber, without obstruction. No pneumatosis, pneumoperitoneum or portal venous gas. Peritoneum: No abnormal intraperitoneal fluid. No free air. Ventral Wall: No hernia. Abdominal Nodes: No retroperitoneal or mesenteric adenopathy by size criteria. Vessels: Aorta and inferior vena cava are normal in size. Gastroduodenal artery coil embolization, as before. Bilateral gonadal veins are prominent measuring up to 10 mm on the left and 8 mm on the right (276, 81) (08/26, ). PELVIS: Pelvic Organs: Unremarkable. Bladder: Unremarkable. Pelvic Nodes: No enlarged lymph nodes. Miscellaneous: No inguinal hernias are seen. Bones: No acute fractures. No aggressive appearing lytic or blastic osseous lesion. Chronic compression fractures of T5, T7, T8 and L5 with no significant osseous retropulsion. IMPRESSION: 1. Compared to CT dated July 09, 2021, new centrilobular nodules in the right upper lobe and similar centrilobular nodules in the right lower lobe suggestive of bronchiolitis of infectious or inflammatory etiology. Previously described pulmonary nodules are stable, some which appear calcified. 2. No acute pathology or lymphadenopathy in the chest, abdomen or pelvis. 3. Bilateral mildly enlarged gonadal veins which may be seen in the setting of pelvic venous insufficiency. 4. Chronic compression fractures at T5, T7, T8 and L5, stable. Dictated by: Carlos Stratton M.D. on 03/08/2023 at 19:10 Approved by: Carlos Stratton M.D. on 03/08/2023 at 19:28
== END ==
PROVIDERS: PCP Family Medicine; Referring Provider Physician Assistant; Visit Provider Physician Assistant
DX: R91.8 Other nonspecific abnormal finding of lung field (principal); R10.84 Generalized abdominal pain; R94.4 Abnormal results of kidney function studies; I87.8 Other specified disorders of veins; M48.54XS Collapsed vertebra, not elsewhere classified, thoracic region, sequela of fracture; M48.56XS Collapsed vertebra, not elsewhere classified, lumbar region, sequela of fracture; Z90.13 Acquired absence of bilateral breasts and nipples
CPT/HCPCS: 36415; 71260; 74177; 82565; Q9967

== ENCOUNTER → 2023-04-26 09:32 | Outpatient (CLI) | payer MEDICARE, SELFPAY ==
--- NOTE | 2023-04-26 09:36 | DI.RAD.S_ITS ---
Bone Density Report Name: SARAY SALCIDO Age: 72 Sex: Female Ethnicity: White Date of : 1950 Indication: postmenopausal osteoporosis; Referring Provider: LOU KAUFMAN Study: Bone densitometry was performed. Exam Date: April 26, 2023 Accession number: [id number] Bone Density: Region BMD T-score Z-score Classification AP Spine(L1-L4) 0.624 -3.8 -1.7 Osteoporosis Femoral Neck (Left) 0.464 -3.5 -1.6 Osteoporosis Total Hip (Left) 0.533 -3.4 -1.8 Osteoporosis Femoral Neck (Right) 0.464 -3.5 -1.6 Osteoporosis Total Hip (Right) 0.533 -3.4 -1.8 Osteoporosis Total Hip Mean 0.533 -3.4 -1.8 Osteoporosis World Health Organization criteria for BMD impression classify patients as: Normal (T-score at or above -1.0), Osteopenia (T-score between -1.0 and -2.5), or Osteoporosis (T-score at or below -2.5). 10-year Fracture Risk: FRAX not reported because: Some T-score for Spine Total or Hip Total or Femoral Neck at or below -2.5 Previous Exams: -- Region Exam Age BMD T-score BMD Change BMD Change Date g/cm2 vs Baseline vs Previous -- AP Spine (L1-L4) 04/26/2023 72 0.624 -3.8 0.027 (4.5%)# 0.027 (4.5%)# 02/10/2018 67 0.597 -4.1 Total Hip(Left) 04/26/2023 72 0.533 -3.4 -0.010 (-1.8%)# -0.010 (-1.8%)# 02/10/2018 67 0.543 -3.3 Total Hip(Right) 04/26/2023 72 0.533 -3.4 0.022 (4.3%)# 0.022 (4.3%)# 02/10/2018 67 0.511 -3.5 -- *Denotes significance at 95% confidence level, LSC for AP Spine = 0.022 g/cm2, LSC for Total Hip = 0.027 g/cm2 # Denotes dissimilar scan types or analysis methods Impression: The patient has osteoporosis, based on the Total Spine T-score. No significant bone loss was observed. Discussion: INCREASED RISK OF FRACTURE. BONE DENSITY IS UNDESIRABLY LOW AT ONE OR MORE SKELETAL SITES, CONSISTENT WITH POSTMENOPAUSAL OSTEOPOROSIS. This patient's lowest T-score meets the World Health Organization's (WHO) criteria for osteoporosis at one or more sites (T-score -2.5 or below). In untreated patients, the risk of osteoporotic fracture increases approximately two-fold for each 1.0 SD decrease in T-score. Low bone density is not the only risk factor for fracture; also consider factors such as patient's age, frailty or poor health, risk of falling, risk of injury, previous osteoporotic fracture, family history of osteoporosis, cigarette smoking, low body weight, etc. Not everyone with low bone mineral density has osteoporosis; osteomalacia and other metabolic bone disorders should also be considered. Patients who have osteoporosis should be evaluated for specific diseases and conditions (secondary causes) that may cause or contribute to bone loss. The [place] [employer]ocr[employer] (AACE) and National Osteoporosis Foundation (NOF) recommend pharmacologic intervention for all postmenopausal women whose T-score is in this range. The patient should follow a healthful lifestyle (good nutrition with adequate calcium and vitamin D, and appropriate weight-bearing exercise). Follow-Up: Consider a repeat BMD and Vertebral Fracture Assessment (VFA) exam in 2 years or sooner if medically necessary, to reassess this patient's status. Reported by: IRMA WALLS M.D. on 04/26/2023 10:15:00 AM.
== END ==
PROVIDERS: PCP Physician Assistant; Referring Provider Physician Assistant; Visit Provider Physician Assistant
DX: M81.0 Age-related osteoporosis without current pathological fracture (principal)
CPT/HCPCS: 77080

== ENCOUNTER → 2023-10-03 07:40 | Outpatient (CLI) | payer MEDICARE, SELFPAY ==
--- NOTE | 2023-10-03 07:51 | DI.CT.S_ITS ---
PROCEDURE: CT CHEST ABD PEL W CON INDICATIONS: UPPER CERVICEL PAIN, UNINTENDED WEIGHT LOSS, TECHNIQUE: After the administration of intravenous contrast, 5 mm thick sections acquired from the lung apices to the symphysis. 5 mm coronal and sagittal reformats were performed, with additional 7 mm MIP reformats through the lungs. For radiation dose reduction, the following was used: automated exposure control, adjustment of mA and/or kV according to patient size. COMPARISON: [facility], CT, CT CHEST ABD PEL W CON, 03/08/2023, 13:23. FINDINGS: Image quality: Excellent. CHEST: Lower Neck: No enlarged lymph nodes. Thyroid: No thyroid nodules which require sonographic follow up, per consensus guidelines. Axillae: No enlarged lymph nodes. Bilateral axillary clips. Chest Wall: Bilateral mastectomies. Lungs and Pleura: No pneumothorax or pleural effusions. A few small centrilobular ground-glass pulmonary nodules are unchanged. Some of which have a tree-in-bud appearance. A few areas of distal mucus airway plugging. No consolidation. No mass. Heart: Heart size is normal. No pericardial effusion. Thoracic Vessels: The aorta and pulmonary arteries demonstrate normal size. Mediastinum and [place]: No enlarged lymph nodes. Esophagus: No wall thickening. No hiatal hernia. ABDOMEN: Liver: No solid mass. Gallbladder: Absent. Biliary ducts: No biliary dilation. Pancreas: No ductal dilation. Spleen: Size is within normal limits. Adrenal Glands: No adrenal nodules. Kidneys and Ureters: No hydronephrosis. No solid mass. No complex renal cystic lesion which requires follow up. Stomach and Bowel: Normal colonic caliber, without significant wall thickening. Peritoneum: No abnormal intraperitoneal fluid. No free air. Ventral Wall: No significant ventral hernia. Abdominal Nodes: No retroperitoneal or mesenteric adenopathy by size criteria. Vessels: Aorta and inferior vena cava are normal in size. PELVIS: Pelvic Organs: Anteverted uterus. Bladder: No bladder wall thickening, accounting for underdistention. Pelvic Nodes: No enlarged lymph nodes. Miscellaneous: No inguinal hernias are seen. Bones: No aggressive osseous abnormality. T5, T7, T8, L5 compression fractures are unchanged. IMPRESSION: 1. No metastatic disease identified. Bilateral mastectomies and axillary node dissections. 2. Stable multilevel compression fractures. 3. Subtle centrilobular ground-glass pulmonary opacities are unchanged. A few areas of distal mucus airway plugging. Findings most consistent with infectious/inflammatory etiology. Dictated by: Red Machuca M.D. on 10/03/2023 at 10:20 Approved by: Red Machuca M.D. on 10/03/2023 at 10:32
[2023-10-03 08:20] LABS: Estimated Glomerular Filt Rate > 60 mL/min (>60)
--- NOTE | 2023-10-03 08:37 | DI.RAD.S_ITS ---
PROCEDURE: XR CERVICAL SPINE 2V OR 3V INDICATIONS: PAIN TECHNIQUE: 3 view(s) of the cervical spine were acquired. COMPARISON: [facility], CT, CT CHEST ABD PEL W CON, 10/03/2023, 9:00. FINDINGS: Bones: No fractures or dislocations to the C7 level. The lateral masses of C1 appear intact on the odontoid view. No suspicious bony lesions. Mild degenerative changes. Soft tissues: No prevertebral soft tissue swelling. Right submandibular clips. IMPRESSION: No displaced fracture or traumatic subluxation. Dictated by: Red Machuca M.D. on 10/03/2023 at 13:25 Approved by: Red Machuca M.D. on 10/03/2023 at 13:29
== END ==
PROVIDERS: Radiology Diagnostic Radiology; PCP Family Medicine; Referring Provider Family Medicine; Visit Provider Family Medicine
DX: M47.812 Spondylosis without myelopathy or radiculopathy, cervical region (principal); M54.2 Cervicalgia; R63.4 Abnormal weight loss; R91.8 Other nonspecific abnormal finding of lung field; M48.55XA Collapsed vertebra, not elsewhere classified, thoracolumbar region, initial encounter for fracture; Z90.13 Acquired absence of bilateral breasts and nipples
CPT/HCPCS: 36415; 71260; 72040; 74177; 82565; Q9967

== ENCOUNTER → 2024-07-21 16:02 | Outpatient (CLI) | payer MEDICARE, OTHER, SELFPAY | LOC: LAB 16:03 | PROVIDERS: PCP Family Medicine; Visit Provider Nurse Practitioner Family | DX: R30.0 Dysuria (principal) | CPT/HCPCS: 87077; 87086; 87186 ==

== ENCOUNTER 2024-07-30 11:04 | Emergency (ER) | payer MEDICARE, OTHER, SELFPAY ==
[2024-07-30] VITALS (12 sets, daily range): BP systolic 156–190; BP diastolic 91–116; PULSE 55–67; RESP 18; TEMP 36.9; O2SAT 96–98; BMI 16.6
--- NOTE | 2024-07-30 11:21 | DI.RAD.S_ITS ---
PROCEDURE: XR CHEST 1V INDICATIONS: chest pain TECHNIQUE: One view of the chest was acquired. COMPARISON: [facility], , XR CHEST 1V, 12/24/2019, 15:11. FINDINGS: Surgical changes and devices: Surgical clips are seen in the axillary regions. Lungs and pleura: Lungs are hyperexpanded and clear. No pleural effusions or pneumothorax. Mediastinum: Mediastinal contours appear normal. Heart size is normal. Bones and chest wall: No suspicious bony lesions. Overlying soft tissues appear unremarkable. IMPRESSION: No acute cardiopulmonary abnormality is seen. Approved by: Nolan Pacheco M.D. on 07/30/2024 at 11:39
--- NOTE | 2024-07-30 11:21 | EKG_ITS ---
[address] [address] Test Date: 2024-07-30 Pat Name: Claudia Manzo Department: Room: Gender: Female Vocal Performer: KANDY : 1950 Requested By: Order Number: [id number] Reading MD: Gustavo Anna Measurements Intervals [place] Rate: 60 P: 62 AR: 124 QRS: 42 QRSD: 76 T: 61 QT: 398 QTc: 398 Interpretive Statements Normal sinus rhythm Electronically Signed On 08-01-2024 17:38:15 PDT by Gustavo Anna
[2024-07-30 11:32] LABS: Add Manual Diff / Slide Review NO; Basophils Absolute Auto 0 /uL (0-100); Eosinophils Absolute Auto 0 /uL (0-450); Eosinophils Percent Auto 0.8 % (2-4); Hematocrit 43.4 % (36-46); Hemoglobin 14.5 g/dL (12.0-16.0); Lymphocytes Absolute Auto 1100 /uL (1100-4500); Lymphocytes Percent Auto 23.3 % (25-40); Mean Corpuscular HGB Conc 33.4 % (30-36); Mean Corpuscular Hemoglobin 30.1 PG (26-34); Mean Corpuscular Volume 90.2 fL (80-100); Monocytes Absolute Auto 400 /uL (0-900); Monocytes Percent Auto 9.6 % (3-14); Neutrophils Absolute Auto 3100 /uL (1500-7000); Neutrophils Percent Auto 65.3 % (50-75); Platelet Count 257 X10^3/uL (150-400); Red Blood Cell Count 4.81 X10^6/uL (4.0-5.2); Red Cell Distribution Width 13.8 % (11.6-14.8); White Blood Cell Count 4.7 X10^3/uL (4.5-11.0)
[2024-07-30 11:39] LABS: Prothrombin Time 10.8 SECONDS (9.4-12.5)
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
[2024-07-30 11:42] LABS: PTT Partial Thromboplastin Tim 35 SECONDS (25.1-36.5)
[2024-07-30 11:43] LABS: Alanine Aminotransferase 39 IU/L (<35); Albumin 4.6 g/dL (3.5-5.0); Albumin Globulin Ratio 1.7 (1.0-2.8); Alkaline Phosphatase 51 U/L (38-126); Aspartate Aminotransferase 44 IU/L (14-36); BUN Creatinine Ratio 20.5 (6-22); Bilirubin Total 1.2 mg/dL (0.2-1.3); Blood Urea Nitrogen 17 mg/dL (7-17); Calcium 9.6 mg/dL (8.4-10.2); Carbon Dioxide 27 mmol/L (22-32); Chloride 102 mmol/L (98-107); Creatine Kinase 69 U/L (30-135); Estimated Glomerular Filt Rate > 60 mL/min (>60); Globulin 2.7 g/dL (1.7-4.1); Glucose 97 mg/dL (70-99); HEMOLYSIS 25 (0-50); Lipase 256 U/L (23-300); Sodium 135 mmol/L (137-145); Total Protein 7.3 g/dL (6.3-8.2)
[2024-07-30 11:55] LABS: NT-proBNP (BNP-Adult 18+) 259 pg/mL (<125); Troponin I < 0.012 ng/mL (0.01-0.034)
--- NOTE | 2024-07-30 11:57 | DI.CT.S_ITS ---
PROCEDURE: CT ANGIO HEAD AND NECK INDICATIONS: headache dizziness hypertension TECHNIQUE: After the administration of intravenous contrast, 1 mm thick sections acquired from the aortic arch through the [place]. 3-dimensional vjloyeb-cfjezyceu-hnblooeojr (MIP) and/or volume rendering reformats were acquired of the central intracranial vasculature and neck separately. For radiation dose reduction, the following was used: automated exposure control, adjustment of mA and/or kV according to patient size. COMPARISON: None. FINDINGS: Image quality: Diagnostic. BRAIN: CSF spaces: Ventricles are symmetric in size and shape. Basal cisterns are patent. No extra-axial fluid collections. Brain: Mild generalized parenchymal volume loss. Mild chronic microvascular ischemic changes. Skull and face: Calvarium and facial bones appear intact, without suspicious lesions. Orbits appear normal. Sinuses: Sinuses and mastoids are clear. HEAD CT ANGIOGRAPHY: Anterior circulation: Intracranial internal carotid arteries are normal in size and flow. The flow within the paired anterior cerebral arteries is normal and symmetric. The flow within the middle cerebral arteries is normal and symmetric. The anterior communicating artery is seen. No aneurysms are seen. Posterior circulation: Visualized portions of the vertebral arteries demonstrate normal caliber, and join to form a normal appearing basilar artery. 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 Flow within the posterior cerebral arteries is normal and symmetric. No aneurysms are seen. NECK CT ANGIOGRAPHY: Carotid system: The great vessels demonstrate a conventional anatomy as they arise from the aortic arch. The origins of the common carotid arteries appear patent. The common carotid arteries demonstrate normal caliber and courses. The bifurcation regions are both widely patent. The internal carotid arteries demonstrate normal calibers and courses. Posterior circulation: The origins of the vertebral arteries both appear widely patent. The more superior extracranial portions of both vertebral arteries also demonstrate normal courses and calibers. They join to form a normal appearing basilar artery. Soft tissues: Visualized neck soft tissues demonstrate no suspicious abnormalities. Bones: No suspicious bony lesions. Visualized cervical spine appears normally aligned. IMPRESSION: No significant intracranial arterial abnormality is seen. No significant abnormality is seen within the arteries of the neck. Any quantitative measurements of stenosis were performed using NASCET criteria. Approved by: Nolan Pacheco M.D. on 07/30/2024 at 13:02
[2024-07-30] MEDS: FLUORESCEIN 1 MG STRIP EYE-BOTH (12:03)
[2024-07-30] MEDS: PROPARACAINE 0.5% OPHTH SOL 1 DROPS EYE-BOTH (12:03)
[2024-07-30 12:50] LABS: Appearance Urine UA CLEAR; Bilirubin Urine UA NEGATIVE (NEGATIVE); Color Urine UA YELLOW; Glucose Urine UA NEGATIVE (Negative); Ketones Urine UA NEGATIVE (NEGATIVE); Leukocyte Esterase Urine UA NEGATIVE (NEGATIVE); Nitrite Urine UA NEGATIVE (Negative); Occult Blood Urine UA TRACE-INTACT (Negative); Protein Urine UA NEGATIVE (Negative); Specific Gravity Urine UA <=1.005 (1.000-1.035); Urobilinogen Urine UA 0.2 E.U./dL (0.2)
[2024-07-30 12:52] LABS: Urine Volume 10mL (spun)
[2024-07-30 12:53] LABS: Bacteria Urine None Seen; Culture Indicated Urine Cult Not Indicated; RBC Urine None Seen (0-5/HPF); Squamous Epithelial Cell Urine None Seen (0-5/HPF); WBC Urine None Seen (0-5/HPF)
== END 2024-07-30 14:15 | disposition home or self-care (01) ==
PROVIDERS: Emergency Provider Emergency Medicine; PCP Family Medicine
DX: H43.399 Other vitreous opacities, unspecified eye (principal); I10 Essential (primary) hypertension; R07.9 Chest pain, unspecified
CPT/HCPCS: 36415; 70496; 70498; 71045; 80053; 81001; 82550; 83690; 83735; 83880; 84484; 85025; 85610; 85730; 93005; 99284; Q9967

== ENCOUNTER → 2024-08-16 14:45 | Outpatient (CLI) | payer MEDICARE, OTHER, SELFPAY ==
--- NOTE | 2024-08-16 14:47 | DI.CT.S_ITS ---
PROCEDURE: CT CHEST ABD PEL W CON INDICATIONS: weight loss TECHNIQUE: After the administration of intravenous contrast, 5 mm thick sections acquired from the lung apices to the symphysis. 5 mm coronal and sagittal reformats were performed, with additional 7 mm MIP reformats through the lungs. For radiation dose reduction, the following was used: automated exposure control, adjustment of mA and/or kV according to patient size. COMPARISON: [facility], CT, CT CHEST ABD PEL W CON, 10/03/2023, 9:00. FINDINGS: Image quality: Excellent. CHEST: Lower Neck: No enlarged lymph nodes. Thyroid: No thyroid nodules which require sonographic follow up, per consensus guidelines. Axillae: No enlarged lymph nodes. Chest Wall: Unremarkable. Lungs and Pleura: No pneumothorax or pleural effusions. There is mild right upper lobe bronchiectasis, with mildly improved small airway densities in the right mid to upper lung. Heart: Heart size is normal. No pericardial effusion. Thoracic Vessels: The aorta and pulmonary arteries demonstrate normal size. Mediastinum and [place]: No enlarged lymph nodes. Esophagus: No wall thickening. No hiatal hernia. ABDOMEN: Liver: No solid mass. Gallbladder: Status post cholecystectomy. Biliary ducts: No biliary dilation. Pancreas: No ductal dilation. Spleen: Size is within normal limits. Adrenal Glands: No adrenal nodules. Kidneys and Ureters: No hydronephrosis. No solid mass. No complex renal cystic lesion which requires follow up. Stomach and Bowel: Normal colonic caliber, without significant wall thickening. Peritoneum: No abnormal intraperitoneal fluid. No free air. Ventral Wall: No significant ventral hernia. Abdominal Nodes: No retroperitoneal or mesenteric adenopathy by size criteria. Vessels: Aorta and inferior vena cava are normal in size. PELVIS: Pelvic Organs: Unremarkable. Bladder: No bladder wall thickening, accounting for underdistention. Pelvic Nodes: No enlarged lymph nodes. Miscellaneous: No inguinal hernias are seen. Bones: No aggressive osseous abnormality. IMPRESSION: 1. No definite mass seen. 2. Mildly improved bronchiolitis with persistent mild bronchiectasis. Dictated by: Harsh Bazan M.D. on 08/18/2024 at 15:31 Approved by: Harsh Bazan M.D. on 08/18/2024 at 15:39
== END ==
LOC: CT 14:46
PROVIDERS: PCP Family Medicine; Referring Provider Family Medicine; Visit Provider Family Medicine
DX: J21.9 Acute bronchiolitis, unspecified (principal); J47.9 Bronchiectasis, uncomplicated; I10 Essential (primary) hypertension; R63.4 Abnormal weight loss; Z90.49 Acquired absence of other specified parts of digestive tract
CPT/HCPCS: 71260; 74177; Q9967

== ENCOUNTER → 2024-09-12 15:10 | Outpatient (CLI) | payer MEDICARE, OTHER, SELFPAY ==
[2024-09-12 16:28] LABS: Alanine Aminotransferase 27 IU/L (<35); Albumin 4.6 g/dL (3.5-5.0); Albumin Globulin Ratio 1.7 (1.0-2.8); Alkaline Phosphatase 61 U/L (38-126); Aspartate Aminotransferase 34 IU/L (14-36); Bilirubin Total 0.6 mg/dL (0.2-1.3); Bilirubin Unconjugated 0.2 mg/dL (0.0-1.1); C-Reactive Protein Quant < 0.5 mg/dL (<1.0); Globulin 2.7 g/dL (1.7-4.1); HEMOLYSIS < 15 (0-50); Total Protein 7.3 g/dL (6.3-8.2)
[2024-09-12 16:58] LABS: Thyroid Stimulating Hormone 0.984 uIU/mL (0.47-4.68)
[2024-09-13 15:14] LABS: Hep C Virus Ab w/Reflex Quant NEGATIVE s/c (NEGATIVE)
== END ==
LOC: LAB 15:13
PROVIDERS: PCP Family Medicine; Referring Provider Family Medicine; Visit Provider Family Medicine
DX: R63.4 Abnormal weight loss (principal)
CPT/HCPCS: 36415; 80076; 82784; 83516; 84443; 86140; 86803; 87522

== ENCOUNTER → 2024-09-13 08:01 | Outpatient (CLI) | payer MEDICARE, OTHER, SELFPAY ==
[2024-09-13 09:14] LABS: Hemoglobin A1C% w Est Avg Glu 5.1 % (4.0-6.0)
[2024-09-13 10:11] LABS: Cortisol AM (Before 10AM) 11.8 ug/dL (4.46-22.7)
[2024-09-15 15:39] LABS: Calprotectin, Stool 12 ug/g (0-120)
== END ==
PROVIDERS: PCP Family Medicine; Referring Provider Internal Medicine Gastroenterology; Visit Provider Internal Medicine Gastroenterology
DX: K59.4 Anal spasm (principal); R63.4 Abnormal weight loss; R74.01 Elevation of levels of liver transaminase levels
CPT/HCPCS: 82533; 82656; 83036; 83993

== ENCOUNTER 2024-11-13 11:26 | Emergency (ER) | payer MEDICARE, OTHER, SELFPAY ==
[2024-11-13] VITALS (7 sets, daily range): BP systolic 106–151; BP diastolic 74–84; PULSE 78–92; RESP 19; TEMP 36.9; O2SAT 97–99
--- NOTE | 2024-11-13 11:50 | PC.NURSE ---
Went to assist pt out of car. Family with pt yelling at staff to bring a stretcher outside to help out of car. WC brought to pt and sat pt in WC. Brought to registration desk. Family continues to yell at staff that pt needs to lay down. Attempted to explain to family but remains insistent and yelling at staff. Moved pt to room 7 and MD notified of pain. Verbal order for IV dilaudid received and implemented.
--- NOTE | 2024-11-13 11:51 | ED_ITS ---
HPI - Back Pain/Injury General Chief Complaint: Back Pain/Injury Stated Complaint: Back pain can't stand or sit Time Seen by Provider: 11/13/24 11:34 Source: patient History of Present Illness HPI Narrative: 74 female history of anxiety, hypertension, dyslipidemia, primary invasive breast cancer was bending over all the carpet when she heard a pop in having severe pain her right lower back at this point having difficulty sitting standing at this point but no numbness tingling or bowel or bladder incontinence or abdominal pain chest pain shortness of breath. She has not taken anything for it and nothing makes it better or worse. Other than what is stated 14 point review of system is negative. Related Data Previous Rx's ?Medication ?Instructions ?Recorded Disability Parking Placard #1 ea 02/03/23 metoprolol succinate 25 mg See Rx Instructions .Route 08/14/24 tablet,extended release 24 hr .COMPLEX #90 tabs lorazepam 1 mg tablet See Rx Instructions .Route 0 09/13/24 .COMPLEX #120 tabs amlodipine 5 mg tablet 5 mg PO DAILY #90 tabs 11/06 gabapentin 100 mg capsule See Rx Instructions PO TID P RN 11/06/24 pain #180 caps lisinopril 20 mg tablet 20 mg PO BID #180 tabs 11/06 hydrocodone 5 mg-acetaminophen 325 1 tab PO Q4-6H PRN pain #20 tabs 11/13/24 mg tablet Allergies Allergy/AdvReac Type Severity Reaction Status Date / Time morphine (MORPHINE) Allergy Severe MY BRAIN Verified 11/13/24 11:43 RECEPTORS TO ACKNOWLEDGE IT permethrin (PERMETHRIN) Allergy Severe vomiting, Verified 11/13/24 11:43 diarrhea, all over rash clindamycin (CLINDAMYCIN) Allergy Mild Verified 11/13/24 11:43 codeine (CODEINE) Allergy Mild Verified 11/13/24 11:43 prednisone (PREDNISONE) AdvReac Intermediate SICK TO Verified 11/13/24 11:43 STOMACH HARD TIME THINKING acetaminophen (ACETAMINOPHEN) AdvReac Mild vomiting Verified 11/13/24 11:43 aspirin (ASPIRIN) AdvReac Mild rectal Verified 11/13/24 11:43 bleeding losartan AdvReac Severe Nausea Uncoded 11/13/24 11:43 Review of Systems Review of Systems ROS Unobtainable: All systems reviewed & are unremarkable except as noted in HPI and below Patient History Medical History (Updated 11/13/24 @ 15:33 by Juan Perdomo DO) Polyneuropathy Bronchiectasis Chronic pain HX: breast cancer (~2005) Primary invasive malignant neoplasm of left female breast Surgical History History of lumpectomy (~2005) Status post cholecystectomy (~1973) Social History household members: family alcohol intake: former alcohol intake frequency: other Exam Narrative Exam Narrative: GENERAL: [74] year old patient appears stated age. Well-developed patient, in mild distress. HEAD: Atraumatic. Normocephalic. EYES: Pupils equal round and reactive. Extraocular motions intact. No scleral icterus. No injection or drainage. ENT: Nose without bleeding, purulent drainage. Throat without erythema, tonsillar hypertrophy or exudate. Airway patent. NECK: Trachea midline. Non tender CARDIOVASCULAR: Regular rate and rhythm without murmurs, gallops, or rubs. RESPIRATORY: Clear to auscultation. Breath sounds equal bilaterally. No wheezes, rales, or rhonchi. GASTROINTESTINAL: Abdomen soft, non-tender, nondistended. EXTREMITIES: No edema or joint tenderness. BACK: LLL Paralumbosacral L4-5, S1 without deformity or crepitance. No flank tenderness. NEURO: AOx3. SKIN: No rash or erythema of visible areas Initial Vital Signs Initial Vital Signs: Vital Signs Pulse Rate 92 H 11/13/24 11:34 Blood Pressure 106/74 11/13/24 11:34 Pulse Oximetry 98 11/13/24 11:34 Course Orders Ordered: ED Orders 11/13/24 12:07 CT lumbar spine wo con Stat XR ribs RT min 3V w CXR1V Stat Discontinued Medications Hydromorphone HCl (Hydromorphone Hcl 0.5 Mg/0.5 Ml Syringe) 0.5 mg IV NOW ONE Stop: 11/13/24 11:48 Last Admin: 11/13/24 11:53 Dose: 0.5 mg Documented By: Hydromorphone HCl (Hydromorphone 1 Mg/Ml Syringe) 2 mg IV NOW ONE Stop: 11/13/24 14:36 Last Admin: 11/13/24 14:44 Dose: 2 mg Documented By: Lidocaine HCl (Lidocaine 2% Inj Mdv 20ml) 20 ml INJ INTRA-OP ONE Stop: 11/13/24 12:08 Last Admin: 11/13/24 12:26 Dose: 4 ml Documented By: MIGUELINA Lidocaine HCl (Lidocaine 2% Inj Mdv 20ml) 20 ml IV NOW ONE Stop: 11/13/24 13:25 Last Admin: 11/13/24 14:05 Dose: 20 ml Documented By: Triamcinolone (Triamcinolone 40 Mg/Ml Vial) 40 mg INJ NOW ONE Stop: 11/13/24 12:08 Last Admin: 11/13/24 12:28 Dose: 40 mg Documented By: MIGUELINA Vital Signs Vital signs: Vital Signs - 8 hr 11/13/24 11:34 11/13/24 11:34 11/13/24 11:42 Temperature 98.4 F Pulse Rate 92 H 87 Respiratory Rate 19 Blood Pressure 106/74 106/74 Pulse Oximetry 98 98 Oxygen Delivery Method Room Air 11/13/24 12:00 11/13/24 12:30 11/13/24 13:00 Temperature Pulse Rate 85 78 84 Respiratory Rate Blood Pressure Pulse Oximetry 99 97 97 Oxygen Delivery Method Room Air 11/13/24 14:00 11/13/24 14:00 11/13/24 14:30 Temperature Pulse Rate 79 Respiratory Rate Blood Pressure 131/81 151/84 H Pulse Oximetry 97 Oxygen Delivery Method Room Air 11/13/24 14:30 Temperature Pulse Rate 82 Respiratory Rate Blood Pressure Pulse Oximetry 98 Oxygen Delivery Method Room Air MDM - Back Pain/Injury Imaging Data Chest x-ray: Radiologist's Impression: [place] [address] XRay Report Signed Patient: Claudia Manzo MR#: [id number] : 1950 Acct:[id number] Age/Sex: 74 / F Date of Service: 11/13/24 Loc: ED ccession Number: [id number] Procedure: XR ribs RT min 3V w CXR1V Ordering Provider: Juan Perdomo D.O. PROCEDURE: XR RIBS RT MIN 3V W CXR 1V INDICATIONS: trauma TECHNIQUE: 2 views of the ribs were acquired, along with a single view chest. COMPARISON: None. FINDINGS: Surgical changes and devices: Surgical clips are noted in right upper quadrant and in right axilla. Bones and chest wall: No fractures or dislocations. No suspicious bony lesions. Overlying soft tissues appear unremarkable. Lungs and pleura: No pleural effusions or pneumothorax. Lungs appear clear. Mediastinum: Mediastinal contours appear normal. Heart size is normal. IMPRESSION: No displaced rib fracture or pneumothorax. CT scan - abdomen/pelvis: Radiologist's Impression: [address] [address] [address] Scan Report Signed Patient: Claudia Manzo MR#: [id number] : 1950 Acct:[id number] Age/Sex: 74 / F Date of Service: 11/13/24 Loc: ED Accession Number: [id number] Procedure: CT lumbar spine wo con Ordering Provider: Juan Perdomo D.O. PROCEDURE: CT LUMBAR SPINE WO CON INDICATIONS: trauma TECHNIQUE: Noncontrast 3 mm thick sections acquired from the T12 level to the sacrum. Sagittal and coronal reformats were constructed. For radiation dose reduction, the following was used: automated exposure control. COMPARISON: [facility], CT, CT CHEST ABD PEL W CON, 08/16/2024, 16:18. FINDINGS: Image quality: Excellent. Bones: There is normal bony alignment. Diffuse osteopenia. In addition to old compressions of L2 and L5, there is an acute or subacute mild compression of L1. No suspicious lytic or blastic bony lesions. No pars defects. No canal stenosis or foraminal stenosis. Soft tissues: No retroperitoneal masses or hematomas. Visualized aorta is normal in caliber. IMPRESSION: 1. Findings are consistent with severe osteoporosis. 2. In addition to multiple chronic compressions, there is an acute or subacute compression of L1. 3. No canal stenosis or foraminal stenosis. MDM Narrative Medical decision making narrative: All lab work, vital signs, nurse triage note, medication list, previous ER visits, and all imaging studies reviewed. CT lumbar showed severe osteoporosis acute or subacute compression L1. No canal stenosis or foraminal stenosis. Chest x-ray showed no rib fracture. Differential diagnosis contusion sprain osteoarthritis fracture. DC home on [facility] rx Discharge Plan Departure Patient Disposition: Home Clinical Impression: Compression fracture Instructions: DI for Vertebral Fracture Activity Restrictions/Additional Instructions: Return with new or worsening symptoms. Follow up PCP in 1-2 weeks if no improvement in symptoms. Take medicines directed. Prescriptions: New hydrocodone-acetaminophen 5-325 mg tablet 1 tab PO Q4-6H PRN (Reason: pain) Qty: 20 0RF No Action (DME) Disability Parking Placard See Rx Instructions .Route .MEDSUPPLY Qty: 1 0RF Rx Instructions: As directed metoprolol succinate 25 mg tablet extended release 24 hr See Rx Instructions .ROUTE .COMPLEX Qty: 90 3RF Dose Instruction: TAKE 1 TABLET BY MOUTH EVERY DAY Rx Instructions: TAKE 1 TABLET BY MOUTH EVERY DAY lorazepam 1 mg tablet See Rx Instructions .ROUTE .COMPLEX Qty: 120 2RF Dose Instruction: TAKE 1 TABLET (1 MG) BY MOUTH THREE TIMES DAILY NEEDED FOR ANXIETY Rx Instructions: t1 tab po QID prn anxiety. lisinopril 20 mg tablet 20 mg PO BID Qty: 180 2RF amlodipine 5 mg tablet 5 mg PO DAILY Qty: 90 2RF gabapentin 100 mg capsule See Rx Instructions PO TID PRN (Reason: pain) Qty: 180 2RF Rx Instructions: orally three times a day PRN; May take up to 3 tabs at night Referrals: Mode Lopez MD [Primary Care Provider, Family Practice] Stand Alone Forms: Patient Portal/API
--- NOTE | 2024-11-13 12:07 | DI.CT.S_ITS ---
PROCEDURE: CT LUMBAR SPINE WO CON INDICATIONS: trauma TECHNIQUE: Noncontrast 3 mm thick sections acquired from the T12 level to the sacrum. Sagittal and coronal reformats were constructed. For radiation dose reduction, the following was used: automated exposure control. COMPARISON: [facility], CT, CT CHEST ABD PEL W CON, 08/16/2024, 16:18. FINDINGS: Image quality: Excellent. Bones: There is normal bony alignment. Diffuse osteopenia. In addition to old compressions of L2 and L5, there is an acute or subacute mild compression of L1. No suspicious lytic or blastic bony lesions. No pars defects. No canal stenosis or foraminal stenosis. Soft tissues: No retroperitoneal masses or hematomas. Visualized aorta is normal in caliber. IMPRESSION: 1. Findings are consistent with severe osteoporosis. 2. In addition to multiple chronic compressions, there is an acute or subacute compression of L1. 3. No canal stenosis or foraminal stenosis. Dictated by: Gaurav Maynard M.D. on 11/13/2024 at 14:47 Approved by: Gaurav Maynard M.D. on 11/13/2024 at 14:50
--- NOTE | 2024-11-13 12:07 | DI.RAD.S_ITS ---
PROCEDURE: XR RIBS RT MIN 3V W CXR 1V INDICATIONS: trauma TECHNIQUE: 2 views of the ribs were acquired, along with a single view chest. COMPARISON: None. FINDINGS: Surgical changes and devices: Surgical clips are noted in right upper quadrant and in right axilla. Bones and chest wall: No fractures or dislocations. No suspicious bony lesions. Overlying soft tissues appear unremarkable. Lungs and pleura: No pleural effusions or pneumothorax. Lungs appear clear. Mediastinum: Mediastinal contours appear normal. Heart size is normal. IMPRESSION: No displaced rib fracture or pneumothorax. Dictated by: Gilberto Kessler M.D. on 11/13/2024 at 14:22 Approved by: Gilberto Kessler M.D. on 11/13/2024 at 14:23
[2024-11-13] MEDS: LIDOCAINE 2% INJ MDV 20ML 20 ML INJ (12:26)
[2024-11-13] MEDS: TRIAMCINOLONE 40 MG/ML VIAL INJ (12:28)
--- NOTE | 2024-11-13 12:39 | PC.NURSE ---
Pt laying on prone on gurney. Reports pain 09/11. Waiting for MD to provide injection to low back.
[2024-11-13] MEDS: LIDOCAINE 2% INJ MDV 20ML 20 ML IV (14:05)
--- NOTE | 2024-11-13 14:35 | PC.NURSE ---
Pt reports that pain is coming back and wants something for pain. Dr Perdomo notified. Verbal orders received for Dilaudid 2 mg IV. Orders read back.
== END 2024-11-13 15:54 | disposition home or self-care (01) ==
PROVIDERS: Emergency Provider Family Medicine; PCP Family Medicine
DX: M80.08XA Age-related osteoporosis with current pathological fracture, vertebra(e), initial encounter for fracture (principal)
CPT/HCPCS: 71101; 72131; 96374; 96376; 99284; J1171

== ENCOUNTER 2024-11-14 07:13 | Emergency (ER) | payer MEDICARE, OTHER, SELFPAY ==
[2024-11-14 07:22] VITALS: BP 132/75; PULSE 72; RESP 20; TEMP 37; O2SAT 97; BMI 20.9
--- NOTE | 2024-11-14 08:16 | ED.BACK ---
HPI - Back Pain/Injury General Chief Complaint: Back Pain/Injury Stated Complaint: Back Pain Time Seen by Provider: 11/14/24 08:00 Source: patient and EMS History of Present Illness HPI Narrative: Patient brought in by ambulance from home. Both of her sons are at bedside. Patient was seen here yesterday for compression fracture of the lumbar spine. She had pain controlled here with Dilaudid whenever she did not take the hydrocodone because she thinks she is allergic to it. She did not get it filled. She gets nauseous with the pain medication. Reviewed with her this is a side effect and not necessarily a allergy. She has had oxycodone in the past. We have given her Dilaudid intramuscular here. Pain is better. I will prescribe oxycodone Zofran and Narcan for her. Patient had sons agree with treatment plan. She had not had any pain medications since she left the department yesterday. Otherwise no new complaints. She is only here for alternative pain medication prescription Related Data Previous Rx's ?Medication ?Instructions ?Recorded Disability Parking Placard #1 ea 02/03/23 metoprolol succinate 25 mg See Rx Instructions .Route 08/14/24 tablet,extended release 24 hr .COMPLEX #90 tabs lorazepam 1 mg tablet See Rx Instructions .Route 09/13/24 .COMPLEX #120 tabs amlodipine 5 mg tablet 5 mg PO DAILY #90 tabs 11/06/24 gabapentin 100 mg capsule See Rx Instructions PO TID PRN 11/06/24 pain #180 caps lisinopril 20 mg tablet 20 mg PO BID #180 tabs 11/06/24 hydrocodone 5 mg-acetaminophen 325 1 tab PO Q4-6H PRN pain #20 tabs 11/13/24 mg tablet naloxone 4 mg/actuation nasal 4 mg intranasal Q2M PRN opioid 11/14/24 spray (Narcan) overdose #2 ea ondansetron 4 mg disintegrating 4 mg PO Q6H PRN nausea and 11/14/24 tablet vomiting #20 tabs oxycodone-acetaminophen 5 mg-325 1 tab PO Q4-6H PRN pain #20 tabs 11/14/24 mg tablet (Percocet) Allergies Allergy/AdvReac Type Severity Reaction Status Date / Time morphine (MORPHINE) Allergy Severe MY BRAIN Verified 11/14/24 07:23 RECEPTORS TO ACKNOWLEDGE IT permethrin (PERMETHRIN) Allergy Severe vomiting, Verified 11/14/24 07:23 diarrhea, all over rash clindamycin (CLINDAMYCIN) Allergy Mild Verified 11/14/24 07:23 codeine (CODEINE) Allergy Mild Verified 11/14/24 07:23 prednisone (PREDNISONE) AdvReac Intermediate SICK TO Verified 11/14/24 07:23 STOMACH HARD TIME THINKING acetaminophen (ACETAMINOPHEN) AdvReac Mild vomiting Verified 11/14/24 07:23 aspirin (ASPIRIN) AdvReac Mild rectal Verified 11/14/24 07:23 bleeding losartan AdvReac Severe Nausea Uncoded 11/14/24 07:23 Review of Systems Review of Systems Narrative: GENERAL: Negative chills, fatigue, malaise, fever, sweats. HEENT: Negative sinus pain, ear pain, sore throat RESPIRATORY: Negative dyspnea, cough CARDIOVASCULAR: Negative chest pain, palpitations GASTROINTESTINAL: Negative vomiting, nausea, abdominal pain : Negative dysuria, frequency, hematuria MUSCULOSKELETAL: Positive muscle or bony pain SKIN: Negative rash, skin lesions NEUROLOGIC: Negative weakness, numbness ROS Unobtainable: All systems reviewed & are unremarkable except as noted in HPI and below Patient History Medical History (Updated 11/14/24 @ 08:20 by Maury Palm MD) Polyneuropathy Bronchiectasis Chronic pain HX: breast cancer (~2005) Primary invasive malignant neoplasm of left female breast Surgical History History of lumpectomy (~2005) Status post cholecystectomy (~1973) Social History household members: family alcohol intake: former alcohol intake frequency: other Exam Narrative Exam Narrative: GENERAL: in no distress, not toxic not dyspneic HEAD: Normocephalic. EYES: Pupils equal round NECK: Trachea midline. CARDIOVASCULAR: Regular rate and rhythm RESPIRATORY: Clear to auscultation. Breath sounds equal bilaterally. No wheezes, rales, or rhonchi. NEURO: AOx4. Clear speech SKIN: Warm and dry PSYCH: Not anxious, is cooperative Initial Vital Signs Initial Vital Signs: Vital Signs Temperature 98.6 F 11/14/24 07:22 Pulse Rate 72 11/14/24 07:22 Respiratory Rate 20 11/14/24 07:22 Blood Pressure 132/75 11/14/24 07:22 Pulse Oximetry 97 11/14/24 07:22 Oxygen Delivery Method Room Air 11/14/24 07:22 Course Orders Ordered: Discontinued Medications Hydromorphone HCl (Hydromorphone 1 Mg/Ml Syringe) 2 mg IM NOW ONE Stop: 11/14/24 07:30 Last Admin: 11/14/24 07:35 Dose: 2 mg Documented By: POOJA Ondansetron HCl (Ondansetron 4 Mg Odt) 4 mg SL NOW ONE Stop: 11/14/24 08:15 Vital Signs Vital signs: Vital Signs - 8 hr 11/14/24 07:22 Temperature 98.6 F Pulse Rate 72 Respiratory Rate 20 Blood Pressure 132/75 Pulse Oximetry 97 Oxygen Delivery Method Room Air MDM - Back Pain/Injury MDM Narrative Medical decision making narrative: Patient brought in by ambulance from home. Both of her sons are at bedside. Patient was seen here yesterday for compression fracture of the lumbar spine. She had pain controlled here with Dilaudid whenever she did not take the hydrocodone because she thinks she is allergic to it. She did not get it filled. She gets nauseous with the pain medication. Reviewed with her this is a side effect and not necessarily a allergy. She has had oxycodone in the past. We have given her Dilaudid intramuscular here. Pain is better. I will prescribe oxycodone Zofran and Narcan for her. Patient had sons agree with treatment plan. She had not had any pain medications since she left the department yesterday. Otherwise no new complaints. She is only here for alternative pain medication prescription MDM After history and exam, exam and history are reassuring. Patient only here for altered prescription for pain medication. Differential considered: Includes but not limited to Medical records reviewed: CT done here yesterday and ER notes. Consultations: None indicated at this time Re-evaluations: 8:20 a.m.. Reviewed with patient and her sons treatment plan. They agree for new prescriptions. Pain is controlled. Return precautions reviewed. They desire discharge home. Discussion: Appropriate for discharge home. No further workup indicated patient only here for alternative prescription for pain medication. Diagnosis: Back pain Discharge Plan Departure Patient Disposition: Home Clinical Impression: Back pain due to injury Instructions: DI for Taking Pain Medication Activity Restrictions/Additional Instructions: Different pain medication prescription has been provided for you. Please do take not seem medications prevent vomiting the medication. Prescription for Narcan has been provided as well to use if any sign nose, trouble breathing, unresponsive, any skin color changes, call the ambulance/911 immediately. Return if worse if any questions or concerns. Please see family doctor within a week for re-evaluation. Prescriptions: New oxycodone-acetaminophen [Percocet] 5-325 mg tablet 1 tab PO Q4-6H PRN (Reason: pain) Qty: 20 0RF ondansetron 4 mg tablet,disintegrating 4 mg PO Q6H PRN (Reason: nausea and vomiting) Qty: 20 0RF naloxone [Narcan] 4 mg/actuation spray,non-aerosol 4 mg intranasal Q2M PRN (Reason: opioid overdose) Qty: 2 0RF Rx Instructions: spray 1 dose into ONE nostril; alternate nostrils w each dose until help arrives No Action (DME) Disability Parking Placard See Rx Instructions .Route .MEDSUPPLY Qty: 1 0RF Rx Instructions: As directed metoprolol succinate 25 mg tablet extended release 24 hr See Rx Instructions .ROUTE .COMPLEX Qty: 90 3RF Dose Instruction: TAKE 1 TABLET BY MOUTH EVERY DAY Rx Instructions: TAKE 1 TABLET BY MOUTH EVERY DAY lorazepam 1 mg tablet See Rx Instructions .ROUTE .COMPLEX Qty: 120 2RF Dose Instruction: TAKE 1 TABLET (1 MG) BY MOUTH THREE TIMES DAILY NEEDED FOR ANXIETY Rx Instructions: t1 tab po QID prn anxiety. lisinopril 20 mg tablet 20 mg PO BID Qty: 180 2RF amlodipine 5 mg tablet 5 mg PO DAILY Qty: 90 2RF gabapentin 100 mg capsule See Rx Instructions PO TID PRN (Reason: pain) Qty: 180 2RF Rx Instructions: orally three times a day PRN; May take up to 3 tabs at night hydrocodone-acetaminophen 5-325 mg tablet 1 tab PO Q4-6H PRN (Reason: pain) Qty: 20 0RF Referrals: Mode Lopez MD [Primary Care Provider, Family Practice] Stand Alone Forms: Patient Portal/API
== END 2024-11-14 09:17 | disposition home or self-care (01) ==
PROVIDERS: Emergency Provider Emergency Medicine; PCP Family Medicine
DX: M54.50 Low back pain, unspecified (principal); M80.08XG Age-related osteoporosis with current pathological fracture, vertebra(e), subsequent encounter for fracture with delayed healing
CPT/HCPCS: 96372; 99283; J1171

== ENCOUNTER → 2025-03-05 11:39 | Outpatient (CLI) | payer MEDICARE, OTHER, SELFPAY ==
--- NOTE | 2025-03-05 11:41 | DI.MRI.S_ITS ---
PROCEDURE: MR PELVIS WO CON INDICATIONS: coccyx injury; persistent pain TECHNIQUE: MRI examination of the pelvis with additional small [id number] sequences of the sacrum. COMPARISON: None. FINDINGS: Image quality: Excellent. Bones: The sacroiliac joints appear intact. No adjacent bone marrow edema to suggest active sacroiliitis. No bony ankylosis. Sacrum and coccyx are unremarkable. Partially imaged 1.5 cm proximal left femur diaphysis subtrochanteric lesion measuring 1.5 cm. L5-S1 facet arthropathy and posterior disc bulge with no spinal canal or foraminal narrowing. Soft tissues: No presacral masses. Rectum appears normal in caliber and wall thickness. No pathologic free pelvic fluid. No bursitis. No joint effusion. No tendon tear or muscle edema. IMPRESSION: Unremarkable coccyx. Indeterminate lesion left proximal femur. Further evaluation with dedicated left femur MRI with and without contrast and with in and out of phase sequences recommended. Dictated by: Max Nye M.D. on 03/05/2025 at 12:51 Approved by: Max Nye M.D. on 03/05/2025 at 12:56
[2025-03-05 17:35] LABS: Appearance Urine UA CLEAR; Bilirubin Urine UA NEGATIVE (NEGATIVE); Color Urine UA YELLOW; Glucose Urine UA NEGATIVE (Negative); Ketones Urine UA NEGATIVE (NEGATIVE); Leukocyte Esterase Urine UA NEGATIVE (NEGATIVE); Nitrite Urine UA NEGATIVE (Negative); Occult Blood Urine UA 1+ (Negative); Protein Urine UA NEGATIVE (Negative); Specific Gravity Urine UA <=1.005 (1.000-1.035); Urobilinogen Urine UA 0.2 E.U./dL (0.2)
[2025-03-05 17:44] LABS: pH Urine UA 5.5 (4.5-8.0)
[2025-03-05 18:01] LABS: Culture Indicated Urine Cult Not Indicated
== END ==
PROVIDERS: PCP Family Medicine; Referring Provider Orthopaedic Surgery Orthopaedic Surgery of the Spine; Visit Provider Orthopaedic Surgery Orthopaedic Surgery of the Spine
DX: M53.3 Sacrococcygeal disorders, not elsewhere classified (principal); M89.9 Disorder of bone, unspecified; R30.0 Dysuria; N89.8 Other specified noninflammatory disorders of vagina; R10.20 Pelvic and perineal pain unspecified side; M47.817 Spondylosis without myelopathy or radiculopathy, lumbosacral region; M51.379 Other intervertebral disc degeneration, lumbosacral region without mention of lumbar back pain or lower extremity pain
CPT/HCPCS: 72195; 81001